=== PATIENT | male | born 1935 | race Hispanic/Latino ===

== ENCOUNTER → 2017-05-05 | Outpatient (CLI) | payer OTHER ==
[~2017-05-05] MED LIST: ACET1TAB12 PO; ACET500C44 PO; CLIN150C10 PO; DEXT15DR29 OP; DORZ10DR9 OU; RIVA20TA PO; TAMS0.4C32 PO; TIMO5DRO39 OU; XALA2.5OS OU
== END ==
LOC: SHCH 12:52
PROVIDERS: ATTEND Internal Medicine Cardiovascular Disease
DX: R00.1 Bradycardia, unspecified (principal); R00.2 Palpitations
CPT/HCPCS: 93306

== ENCOUNTER 2017-06-12 11:48 | Day surgery (SDC) | payer OTHER ==
[2017-06-09 09:52] LABS: BASOPHILS % (AUTO) 0.7 % (0.0-5.0); HEMATOCRIT 42.2 % (42-54); LYMPHOCYTES % (AUTO) 35.1 % (21.0-51.0); MEAN CORPUSCULAR HEMOGLOBIN 29.3 pg (27.0-33.0); MEAN CORPUSCULAR HGB CONC 33.8 g/dL (32.0-36.0); MEAN CORPUSCULAR VOLUME 86.7 fL (79-99); MONOCYTES % (AUTO) 12.1 % (3.0-13.0); NEUTROPHILS % (AUTO) 48.1 % (40.0-77.0); PLATELET COUNT (AUTO) 138 K/uL (130-400); RED BLOOD CELL COUNT(AUTO) 4.87 MIL/uL (4.50-6.20); RED CELL DISTRIBUTION WIDTH 14.4 % (11.0-15.5); WHITE BLOOD COUNT (AUTO) 5.1 K/uL (4.8-10.8)
[2017-06-09 09:54] VITALS: BP 128/56
[2017-06-09 10:03] LABS: INR 1.09 (0.85-1.15); PARTIAL THROMBOPLASTIN TIME 29.7 SEC (26.3-35.5); PROTHROMBIN TIME 11.4 SEC (9.6-11.6)
[2017-06-09 10:54] LABS: CREATININE 1.2 mg/dL (0.5-1.5); POTASSIUM 3.9 mmol/L (3.5-5.1)
[~2017-06-12] VITALS: Ht 180.3 cm; Wt 88.7 kg
[~2017-06-12 11:48] MED LIST changes: -CLIN150C10 PO; -TIMO5DRO39 OU
[2017-06-12 12:00] VITALS: BP 144/66
[2017-06-12] MEDS ORDERED: TIMO5DRO39 OU (13:20)
[2017-06-12] MEDS ORDERED: SODIUM CHLORIDE 0.9% 1000ML 1,000 ML IV ONE (13:23)
[2017-06-12] MEDS ORDERED: CEFAZOLIN 1GM / D5W 50ML 0 ML ONE (16:26)
[2017-06-12] MEDS ORDERED: BUPIVACAINE/PF 0.25% 30ML VIAL IJ ONE (16:26)
[2017-06-12] MEDS ORDERED: LIDOCAINE HCL 1% MDV 50ML VIAL ONE (16:26)
[2017-06-12] MEDS ORDERED: VANCOMYCIN 1GM+NS 250ML 0 ML IV ONE (16:44)
[2017-06-12] MEDS ORDERED: CLINDAMYCIN 600 MG/D5% WATER 100 ML IV ONE (16:51)
[2017-06-12] MEDS ORDERED: CLIN150C10 PO (17:35)
[2017-06-12 17:45] VITALS: BP 151/77
[2017-06-12] MEDS ORDERED: ACETAMINOPHEN 325 MG TAB PO PRN (17:45)
[2017-06-12 18:00] VITALS: BP 145/74
[2017-06-12 18:15] VITALS: BP 152/67
[2017-06-12 18:30] VITALS: BP 156/67
[2017-06-12 18:45] VITALS: BP 142/66
== END 2017-06-12 19:10 | disposition home or self-care (01) ==
LOC: DAH 11:48
PROVIDERS: ATTEND Internal Medicine Cardiovascular Disease
DX: I49.8 Other specified cardiac arrhythmias (principal); Z79.899 Other long term (current) drug therapy; H40.89 Other specified glaucoma; Z88.0 Allergy status to penicillin; Z79.01 Long term (current) use of anticoagulants
CPT/HCPCS: 33282; 36415; 80048; 85025; 85610; 85730; 93005; A4606; C1764; J3490 ×3; J7030; J0690; J3370

== ENCOUNTER 2018-04-21 08:25 | Day surgery (SDC) | payer OTHER ==
[~2018-04-21] VITALS: Ht 177.8 cm; Wt 90.4 kg
[2018-04-21] VITALS (7 sets, daily range): BP systolic 108–174; BP diastolic 53–86
[~2018-04-21 08:25] MED LIST changes: -ACET1TAB12 PO; -ACET500C44 PO; -DEXT15DR29 OP; -DORZ10DR9 OU; -RIVA20TA PO; +TIMO5DRO39 OU
[2018-04-21] MEDS ORDERED: SODIUM CHLORIDE 0.9% 1000ML 1,000 ML IV ONE (09:01)
[2018-04-21] MEDS ORDERED: CARB15DR2 OU (10:19)
[2018-04-21] MEDS ORDERED: PROPOFOL 10 MG/ML 20ML VIAL IV ONE ×2 (11:03)
--- NOTE | 2018-04-21 11:26 | NUR ---
ASSESSMENT RECEIVED PT FROM Murphy SPAULDING RN. PT ASLEEP. ABD X4 SOFT TO TOUCH. BS X4 PRESENT
== END 2018-04-21 12:05 | disposition home or self-care (01) ==
LOC: DAH 08:25 → ENDO 08:25
PROVIDERS: ATTEND Internal Medicine
DX: Z08 Encounter for follow-up examination after completed treatment for malignant neoplasm (principal); Z85.038 Personal history of other malignant neoplasm of large intestine; D12.2 Benign neoplasm of ascending colon; D12.3 Benign neoplasm of transverse colon; D12.4 Benign neoplasm of descending colon; Z98.49 Cataract extraction status, unspecified eye; Z79.899 Other long term (current) drug therapy; Z88.0 Allergy status to penicillin; I10 Essential (primary) hypertension; R00.1 Bradycardia, unspecified; K57.30 Diverticulosis of large intestine without perforation or abscess without bleeding; Z98.0 Intestinal bypass and anastomosis status
CPT/HCPCS: 45380; 45385; 88304; 88305; 93005; A4606; J2704 ×2; J7030

== ENCOUNTER 2020-12-04 05:52 | Day surgery (SDC) | payer OTHER ==
[2020-12-01 10:21] LABS: EOSINOPHILS % (AUTO) 2.1 % (0.0-8.0); HEMATOCRIT 43.1 % (42-54); LYMPHOCYTES % (AUTO) 36.3 % (21.0-51.0); MEAN CORPUSCULAR HEMOGLOBIN 29.7 pg (27.0-33.0); MEAN CORPUSCULAR HGB CONC 33.6 g/dL (32.0-36.0); MEAN CORPUSCULAR VOLUME 88.1 fL (79-99); MONOCYTES % (AUTO) 11.8 % (3.0-13.0); NEUTROPHILS % (AUTO) 48.4 % (40.0-77.0); PLATELET COUNT (AUTO) 141 K/uL (130-400); RED BLOOD CELL COUNT(AUTO) 4.89 MIL/uL (4.50-6.20); RED CELL DISTRIBUTION WIDTH 13.4 % (11.0-15.5); WHITE BLOOD COUNT (AUTO) 5.3 K/uL (4.8-10.8)
[2020-12-01 10:31] VITALS: BP 163/65
[2020-12-01 10:32] LABS: INR 1.1 (0.85-1.15); PROTHROMBIN TIME 11.9 SEC (9.6-11.6)
[2020-12-01 10:34] LABS: PARTIAL THROMBOPLASTIN TIME 28.2 SEC (26.3-35.5)
[2020-12-01 10:37] LABS: CREATININE 1.1 mg/dL (0.5-1.5); POTASSIUM 3.5 mmol/L (3.5-5.1)
[~2020-12-04] VITALS: Ht 172.7 cm; Wt 77.3 kg
[~2020-12-04 05:52] MED LIST changes: +AMLO-258 PO; +BRIM5DRO4 OP; +LATA7.5D OP; +RIVA20TA PO; -TAMS0.4C32 PO; -XALA2.5OS OU
[2020-12-04 06:24] VITALS: BP 162/70
[2020-12-04] MEDS ORDERED: LIDOCAINE HCL 1% MDV 50ML VIAL ONE (07:12)
[2020-12-04] MEDS ORDERED: BUPIVACAINE/PF 0.25% 30ML VIAL IJ ONE (07:12)
[2020-12-04] MEDS ORDERED: LIDOCAINE HCL 400MG/20ML VIAL ONE (07:12)
[2020-12-04] MEDS ORDERED: 0.9%NACL 1000ML 1,000 ML IV ONE (07:31)
[2020-12-04 08:05] VITALS: BP 166/64
[2020-12-04 08:20] VITALS: BP 149/58
[2020-12-04 08:35] VITALS: BP 140/56
== END 2020-12-04 09:00 | disposition home or self-care (01) ==
LOC: DAH 05:52
PROVIDERS: ATTEND Internal Medicine Cardiovascular Disease
DX: Z45.09 Encounter for adjustment and management of other cardiac device (principal); I48.91 Unspecified atrial fibrillation; Z79.01 Long term (current) use of anticoagulants; Z86.718 Personal history of other venous thrombosis and embolism; Z79.899 Other long term (current) drug therapy; Z98.890 Other specified postprocedural states; Z88.8 Allergy status to other drugs, medicaments and biological substances; Z90.49 Acquired absence of other specified parts of digestive tract
CPT/HCPCS: 33286; 36415; 80048; 85025; 85610; 85730; 93005; A4215; A4216; A4221; A4222; A4223 ×3; A4606; A4649; A4663; J3490 ×2; J7030

== ENCOUNTER → 2021-08-16 | Outpatient (CLI) | payer OTHER | END | disposition home or self-care (01) | LOC: RAH 10:27 | PROVIDERS: ATTEND Internal Medicine Gastroenterology | DX: R13.11 Dysphagia, oral phase (principal); R63.30 Feeding difficulties, unspecified | CPT/HCPCS: 74230; 92611 ==

== ENCOUNTER → 2021-12-18 | Outpatient (CLI) | payer OTHER | END | disposition home or self-care (01) | LOC: RAH 09:50 | PROVIDERS: ATTEND Family Medicine | DX: R13.10 Dysphagia, unspecified (principal); R63.30 Feeding difficulties, unspecified | CPT/HCPCS: 74230; 92611 ==

== ENCOUNTER 2022-10-09 18:16 | Inpatient (IN) | payer OTHER ==
[~2022-10-09] VITALS: Ht 182.9 cm; Wt 69.9 kg
[~2022-10-09 18:16] MED LIST changes: -BRIM5DRO4 OP; +BRIM5DRO5 OP
[2022-10-09 20:53] LABS: APPEARANCE,URINE CLEAR (CLEAR); BILIRUBIN,URINE NEGATIVE (NEGATIVE); COLOR,URINE YELLOW (YELLOW); GLUCOSE, URINE (UA) NEGATIVE (NEGATIVE); KETONES,URINE NEGATIVE (NEGATIVE); LEUKOCYTE ESTERASE ,URINE 75 Leu/uL (NEGATIVE); NITRATE,URINE NEGATIVE (NEGATIVE); OCCULT BLOOD,URINE MODERATE (NEGATIVE); PH,URINE 5.5 (5.0-8.0); PROTEIN,URINE 10 mg/dL (NEGATIVE); UROBILINOGEN,URINE 0.2 mg/dL (0.2-1.0)
[2022-10-09 21:19] LABS: BACTERIA,URINE RARE /HPF (None Seen); MUCUS,URINE FEW LPF (None Seen); RBC,URINE 26-50 /HPF (0-1); SQUAMOUS EPITHELIAL CELL,UR RARE /HPF (0-2)
[2022-10-09 21:40] LABS: BASOPHILS % (AUTO) 0.3 % (0.0-5.0); EOSINOPHILS % (AUTO) 0.4 % (0.0-8.0); HEMATOCRIT 37.1 % (42-54); LYMPHOCYTES % (AUTO) 18.6 % (21.0-51.0); MEAN CORPUSCULAR HGB CONC 34.2 g/dL (32.0-36.0); MEAN CORPUSCULAR VOLUME 84.7 fL (79-99); MONOCYTES % (AUTO) 12.5 % (3.0-13.0); NEUTROPHILS % (AUTO) 67.9 % (40.0-77.0); PLATELET COUNT (AUTO) 118 K/uL (130-400); RED BLOOD CELL COUNT(AUTO) 4.38 MIL/uL (4.50-6.20); RED CELL DISTRIBUTION WIDTH 13.2 % (11.0-15.5); WHITE BLOOD COUNT (AUTO) 6.7 K/uL (4.8-10.8)
[2022-10-09 21:58] LABS: ALBUMIN 2.9 g/dL (3.5-5.0); TOTAL PROTEIN, SERUM 6.6 g/dL (6.0-8.3)
[2022-10-09 22:01] LABS: CREATININE 12.2 mg/dL (0.5-1.5)
[2022-10-09] MEDS ORDERED: NOREPINEPHRIN 4MG/NS 250ML 250 ML IV PRN (22:30)
[2022-10-09] MEDS ORDERED: CEFTRIAXONE 1G VIAL IVPB ONE (22:30)
[2022-10-09] MEDS ORDERED: PANTOPRAZOLE 40MG INJ 80 MG in 0.9%NACL 100ML 100 ML IV SCH (22:30)
[2022-10-09] MEDS ORDERED: LACTULOSE 20 GM/30 ML UDCUP PO PRN (23:00)
[2022-10-09] MEDS ORDERED: POTASSIUM CHLORIDE 10% ELIXIR 20 MEQ/15 ML UDCUP PO PRN (23:00)
[2022-10-09] MEDS ORDERED: CLONIDINE HCL 0.1 MG TABLET PO PRN (23:00)
[2022-10-09] MEDS ORDERED: POTASSIUM CHLORIDE 10MEQ/100ML 100 ML IV PRN ×2 (23:00)
[2022-10-09] MEDS ORDERED: RENAL DOSE IV PRN (23:00)
[2022-10-09] MEDS ORDERED: HYDRALAZINE 20MG/ML VIAL IV PRN (23:00)
[2022-10-09] MEDS ORDERED: ONDANSETRON 4MG INJ IVP PRN (23:00)
[2022-10-09] MEDS ORDERED: ACETAMINOPHEN 650 MG SUPPOSITORY RC PRN (23:00)
[2022-10-09] MEDS ORDERED: DEXTROSE 50%-WATER 50 ML DISP.SYRIN IV PRN (23:00)
[2022-10-09] MEDS ORDERED: GLUCAGON 1MG KIT 1 MG ML IM PRN (23:00)
[2022-10-09] MEDS ORDERED: ACETAMINOPHEN 325 MG TAB PO PRN (23:00)
[2022-10-09] MEDS: 0.9%NACL 1000ML 1,000 ML IV SCH (23:19)
[2022-10-10 06:32] LABS: BASOPHILS % (AUTO) 0.4 % (0.0-5.0); HEMATOCRIT 34.5 % (42-54); LYMPHOCYTES % (AUTO) 18.9 % (21.0-51.0); MEAN CORPUSCULAR HEMOGLOBIN 29.3 pg (27.0-33.0); MEAN CORPUSCULAR HGB CONC 35.4 g/dL (32.0-36.0); MEAN CORPUSCULAR VOLUME 82.9 fL (79-99); MONOCYTES % (AUTO) 14.6 % (3.0-13.0); NEUTROPHILS % (AUTO) 64.5 % (40.0-77.0); PLATELET COUNT (AUTO) 137 K/uL (130-400); RED BLOOD CELL COUNT(AUTO) 4.16 MIL/uL (4.50-6.20); RED CELL DISTRIBUTION WIDTH 13.2 % (11.0-15.5); WHITE BLOOD COUNT (AUTO) 6.8 K/uL (4.8-10.8)
[2022-10-10 06:35] LABS: CREATININE 7.2 mg/dL (0.5-1.5); MAGNESIUM 1.8 mg/dL (1.80-2.40); POTASSIUM 4.3 mmol/L (3.5-5.1)
[2022-10-10] MEDS: 0.9%NACL 1000ML 1,000 ML IV SCH ×3 (06:57→23:00)
[2022-10-10] MEDS: INSULIN HUMULIN R 100 UNIT/ML 3ML SQ SCH ×4 (07:30→20:48)
[2022-10-10 08:30] VITALS: O2SAT 97
[2022-10-10 08:40] VITALS: BP 155/65; PULSE 82; RESP 20
[2022-10-10] MEDS ORDERED: FINA5TAB41 PO (08:51)
[2022-10-10] MEDS: TIMOLOL MALEATE 0.25% 5 ML BOTTLE OU SCH ×2 (09:00→20:41)
[2022-10-10] MEDS: ENOXAPARIN SODIUM 30 MG/0.3 ML SQ SCH (09:00)
[2022-10-10] MEDS ORDERED: NON-FORMULARY MEDICATION 1 EACH (Amlodipine Besylate 10 MG) PO SCH (09:00)
[2022-10-10] MEDS ORDERED: TIMOLOL MALEATE OU SCH (09:00)
[2022-10-10] MEDS: BRIMONIDINE TARTRATE 0.2% 5 ML BOTTLE OP SCH ×2 (09:00→20:37)
[2022-10-10] MEDS: POLYETHYLENE GLYCOL 3350 17 GM POWD.PACK PO SCH (09:00)
[2022-10-10 12:00] VITALS: BP 153/65; PULSE 86; RESP 19
[2022-10-10] MEDS: PANTOPRAZOLE 40 MG TAB DR PO SCH (12:32)
[2022-10-10] MEDS: AMLODIPINE 5 MG TAB PO SCH (12:32)
[2022-10-10] MEDS: MAGNESIUM 2GM PREMIX 50ML 50 ML IV PRN (12:37)
[2022-10-10 16:00] VITALS: BP 149/69; PULSE 91; RESP 20
[2022-10-10 20:00] VITALS: O2SAT 97
[2022-10-10 20:15] VITALS: BP 147/65; PULSE 88; RESP 18
[2022-10-10] MEDS ORDERED: LATANOPROST 2.5 ML DROPS OU SCH (21:00)
[2022-10-10] MEDS ORDERED: LATANOPROST OP SCH (21:00)
[2022-10-10] MEDS ORDERED: CEFTRIAXONE 1G VIAL IVPB SCH (23:00)
[2022-10-11] VITALS: BP 151/60; PULSE 81; RESP 18
[2022-10-11] MEDS: 0.9%NACL 1000ML 1,000 ML IV SCH ×2 (02:38→15:00)
[2022-10-11 04:00] VITALS: BP 156/63; PULSE 77; RESP 18
[2022-10-11 05:55] LABS: BASOPHILS % (AUTO) 0.5 % (0.0-5.0); EOSINOPHILS % (AUTO) 1.2 % (0.0-8.0); HEMATOCRIT 36.2 % (42-54); LYMPHOCYTES % (AUTO) 27.4 % (21.0-51.0); MEAN CORPUSCULAR HEMOGLOBIN 28.8 pg (27.0-33.0); MEAN CORPUSCULAR HGB CONC 32.9 g/dL (32.0-36.0); MEAN CORPUSCULAR VOLUME 87.7 fL (79-99); MONOCYTES % (AUTO) 13.8 % (3.0-13.0); NEUTROPHILS % (AUTO) 56.9 % (40.0-77.0); PLATELET COUNT (AUTO) 127 K/uL (130-400); RED BLOOD CELL COUNT(AUTO) 4.13 MIL/uL (4.50-6.20); RED CELL DISTRIBUTION WIDTH 13.5 % (11.0-15.5); WHITE BLOOD COUNT (AUTO) 5.7 K/uL (4.8-10.8)
[2022-10-11] MEDS: INSULIN HUMULIN R 100 UNIT/ML 3ML SQ SCH ×3 (06:43→15:37)
[2022-10-11 07:03] LABS: CREATININE 1.5 mg/dL (0.5-1.5); POTASSIUM 3.5 mmol/L (3.5-5.1)
[2022-10-11] MEDS: BRIMONIDINE TARTRATE 0.2% 5 ML BOTTLE OP SCH (07:46)
[2022-10-11] MEDS: TIMOLOL MALEATE 0.25% 5 ML BOTTLE OU SCH (07:47)
[2022-10-11 08:00] VITALS: BP 144/65; PULSE 71; RESP 16; O2SAT 99
[2022-10-11] MEDS ORDERED: TAMS-1 PO (08:27)
[2022-10-11] MEDS ORDERED: LEVO750T39 PO (08:27)
[2022-10-11] MEDS: ENOXAPARIN SODIUM 30 MG/0.3 ML SQ SCH ×2 (08:34→08:41)
[2022-10-11] MEDS: PANTOPRAZOLE 40 MG TAB DR PO SCH (08:35)
[2022-10-11] MEDS: POLYETHYLENE GLYCOL 3350 17 GM POWD.PACK PO SCH (08:35)
[2022-10-11] MEDS: AMLODIPINE 5 MG TAB PO SCH (08:35)
[2022-10-11] MEDS: KCL 20 MEQ ERTAB PO PRN ×2 (08:35→14:01)
[2022-10-11] MEDS: MAGNESIUM 2GM PREMIX 50ML 50 ML IV PRN (08:36)
[2022-10-11] MEDS ORDERED: TAMSULOSIN HCL 0.4 MG CAP.ER.24H PO SCH (09:00)
[2022-10-11 11:58] VITALS: BP 146/65; PULSE 73; RESP 18
== END 2022-10-11 17:32 | disposition home or self-care (01) | DRG 683 ==
LOC: EDH 18:16 → EDHIP 22:52 → 3AH 10-10 08:40
PROVIDERS: ADMIT Internal Medicine Critical Care Medicine; ATTEND Internal Medicine Critical Care Medicine
DX: N17.9 Acute kidney failure, unspecified (principal); E44.0 Moderate protein-calorie malnutrition; E87.20 Acidosis, unspecified; N13.8 Other obstructive and reflux uropathy; N13.6 Pyonephrosis; N40.1 Benign prostatic hyperplasia with lower urinary tract symptoms; D64.9 Anemia, unspecified; D69.6 Thrombocytopenia, unspecified; I10 Essential (primary) hypertension; E11.9 Type 2 diabetes mellitus without complications; E78.5 Hyperlipidemia, unspecified; I25.2 Old myocardial infarction; Z85.038 Personal history of other malignant neoplasm of large intestine; Z86.73 Personal history of transient ischemic attack (TIA), and cerebral infarction without residual deficits; Z90.49 Acquired absence of other specified parts of digestive tract; Z68.20 Body mass index [BMI] 20.0-20.9, adult; N40.0 Benign prostatic hyperplasia without lower urinary tract symptoms
CPT/HCPCS: 36415; 71045; 74176; 76770; 80048; 80053; 81001; 82550; 82948; 83735; 84145; 85025; 87088; 93005; C9113; G0378; J0696; J1650; J3475; J7030

== ENCOUNTER 2023-06-17 20:48 | Emergency (ER) | payer OTHER ==
[~2023-06-17] VITALS: Ht 182.9 cm; Wt 71.7 kg
[~2023-06-17 20:48] MED LIST changes: +LEVO750T39 PO; +TAMS-1 PO
[2023-06-17 22:23] LABS: BASOPHILS # (AUTO) 0.03 K/uL (0.00-0.20); BASOPHILS % (AUTO) 0.3 % (0.0-5.0); HEMATOCRIT 41.1 % (42-54); IMMATURE GRANULOCYTE ABSOLUTE 0.03 K/uL (0-1); LYMPHOCYTES # (AUTO) 0.6 K/uL (1.0-4.8); LYMPHOCYTES % (AUTO) 6.3 % (21.0-51.0); MEAN CORPUSCULAR HEMOGLOBIN 29.2 pg (27.0-33.0); MEAN CORPUSCULAR HGB CONC 34.1 g/dL (32.0-36.0); MEAN CORPUSCULAR VOLUME 85.6 fL (79-99); MONOCYTES # (AUTO) 0.8 K/uL (0.1-1.0); MONOCYTES % (AUTO) 8.6 % (3.0-13.0); NEUTROPHILS # (AUTO) 7.8 K/uL (1.8-7.7); NEUTROPHILS % (AUTO) 84.5 % (40.0-77.0); PLATELET COUNT (AUTO) 120 K/uL (130-400); RED CELL DISTRIBUTION WIDTH 13.2 % (11.0-15.5); WHITE BLOOD COUNT (AUTO) 9.2 K/uL (4.8-10.8)
[2023-06-17 22:35] LABS: CREATININE 1.3 mg/dL (0.5-1.3)
[2023-06-17] MEDS: LEVOFLOXACIN 500 MG/D5W 100 ML 100 ML IV ONE (23:44)
[2023-06-18 00:52] LABS: ADD UA MICROSCOPIC YES; APPEARANCE,URINE CLOUDY (CLEAR); BILIRUBIN,URINE NEGATIVE (NEGATIVE); COLOR,URINE DARK-BROWN (YELLOW); GLUCOSE, URINE (UA) NEGATIVE (NEGATIVE); KETONES,URINE NEGATIVE (NEGATIVE); LEUKOCYTE ESTERASE ,URINE NEGATIVE Leu/uL (NEGATIVE); NITRATE,URINE NEGATIVE (NEGATIVE); OCCULT BLOOD,URINE LARGE (NEGATIVE); PROTEIN,URINE 100 mg/dL (NEGATIVE); UROBILINOGEN,URINE 0.2 mg/dL (0.2-1.0)
[2023-06-18 00:54] LABS: BACTERIA,URINE RARE /HPF (None Seen); MUCUS,URINE RARE LPF (None Seen); RBC,URINE TNTC /HPF (0-1)
[2023-06-18 01:05] VITALS: BP 150/58; PULSE 66; RESP 18; O2SAT 100
== END 2023-06-18 01:36 | disposition home or self-care (01) ==
LOC: EDH 20:48
DX: S37.30XA Unspecified injury of urethra, initial encounter (principal); I10 Essential (primary) hypertension; Z85.038 Personal history of other malignant neoplasm of large intestine; Z90.49 Acquired absence of other specified parts of digestive tract; Z88.0 Allergy status to penicillin; Z98.890 Other specified postprocedural states; Z79.899 Other long term (current) drug therapy; X58.XXXA Exposure to other specified factors, initial encounter; Y93.89 Activity, other specified; Y92.89 Other specified places as the place of occurrence of the external cause; Y99.8 Other external cause status
CPT/HCPCS: 99284; 96365; 80048; 85025; 81001; 36415; 51702; J1956; 51701

== ENCOUNTER 2024-08-11 14:51 | Emergency (ER) | payer OTHER ==
[~2024-08-11] VITALS: Ht 170.2 cm; Wt 72.6 kg
[~2024-08-11 14:51] MED LIST changes: -LEVO750T39 PO; +LEVO750T90 PO; -TAMS-1 PO; +TAMS-55 PO
--- NOTE | 2024-08-11 15:24 | ERN ---
General Chief Complaint: Urinary Catheter Problems Stated Complaint: BLEEDING FROM BROWNE Time Seen by MD: 14:54 History of Present Illness Initial Comments The year old male who presents for hematuria in the Browne. Patient has had a Browne for over two years. He reports that yesterday he began with some blood. This morning there were clots coming out of the Browne. Home health nurse checked on the patient and told him to come to the ER for further evaluation. Currently there is bloody urine without clots in the Browne bag. The patient has no complaints. He does not take any blood thinners. Allergies: Coded Allergies: Penicillins (Unverified Allergy, Unknown, 07/31/16) Home Meds Active Scripts Sulfamethoxazole/Trimethoprim (Bactrim Ds Tablet) 800 Mg-160 Mg Tablet, 1 TAB PO BID for 6 Days, #13 TAB 0 Refills Prov:RATNA ZACARIAS MD 08/11/24 Levofloxacin (Levofloxacin) 750 Mg Tablet, 750 MG PO DAILY, #5 TAB 0 Refills Prov:[facility] 10/11/22 Tamsulosin HCl (Flomax) 0.4 Mg Cap.er.24h, 0.4 MG PO DAILY, #30 CAPSULE.DR 0 Refills Prov:[facility] 10/11/22 Reported Medications Rivaroxaban (Xarelto) 20 Mg Tablet, 20 MG PO DAILY, TAB 12/01/20 Brimonidine Tartrate (Brimonidine Tartrate) 5 Ml Drops, 1 ML OP BID, DROP 12/01/20 Latanoprost/Pf (Latanoprost 0.005% Eye Drop) 7.5 Ml Drops, 1 ML OP HS, DROP 12/01/20 Amlodipine Besylate (Amlodipine Besylate) 10 Mg Tablet, 10 MG PO DAILY for 30 Days, #30 TAB 0 Refills 12/01/20 Timolol Maleate (Timolol Maleate) 5 Ml Drop.daily, 1 DROP OU BID 06/12/17 Past Medical History Past Medical History: Hypertension, Other Medical History Other: ENLARGED PROSTATE; SEASONAL ALLERGIES; BLIND Past Surgical History: Appendectomy, Other Surgical History Other: HX OF COLON CA; COLON RESECTION; Social History Social History: Negative, Lives with family ROS Dictation CONSTITUTIONAL: No chills, no fever, no weakness, no diaphoresis, no malaise. HEAD/FACE: No signs of trauma. EENT: No eye pain, no blurred vision, no tearing, no double vision, no ear pain, no ear discharge, no nose pain, no nasal congestion, no throat pain, no throat swelling, no mouth pain. RESPIRATORY: No cough, no orthopnea, no SOB, no stridor, no wheezing. CARDIOVASCULAR: No chest pain, no edema, no palpitations, no syncope. GASTROINTESTINAL/ABDOMINAL: No abdominal pain, no constipation, no diarrhea, no nausea, no vomiting. GENITOURINARY: Hematuria MUSCULOSKELETAL: No back pain, no gout, no joint pain, no joint swelling, no muscle pain, no muscle stiffness, no neck pain. INTEGUMENTARY: No change in color, no change in hair/nails, no dryness, no lesion, no lumps, no rash. NEUROLOGICAL/PSYCH: No anxiety, not depressed, no emotional problem, no headache, no numbness, no pre-existing deficit, no history of seizures, no tremors, no weakness. HEMATOLOGIC/LYMPHATIC: Not anemic, no history of blood clots, no apparent bleeding, no bruising, glands not swollen. All Systems Negative, Except as Noted. Physical Exam Physical Exam Dictation VITAL SIGNS: Reviewed. GENERAL APPEARANCE: Alert, oriented x3, no acute distress, HEAD AND FACE: Non-traumatic. EYES: PERRL, pink conjunctivas, eyelid no trauma, anterior chamber clear. B brandan EARS: Pinnas intact and no signs of trauma or erythema. Ear canals clear and no discharge. TMs no erythema. NOSE: No discharge, no bleeding. OROPHARYNX: Mouth normal, teeth no caries, tongue pink. Pharynx clear, no erythema. Tonsils no exudates, no abscesses noted. Mucous membrane moist. NECK: Supple, non-tender, no thyromegaly, no masses, no JVD, no bruits. BREAST: Deferred. CHEST: No tenderness, no crepitus, no paradoxical movement, no retractions. LUNGS: Clear, well-ventilated, symmetric, no rales, no wheezing, no rhonchi, no stridor, good breath sounds bilaterally. HEART: Regular rate, regular rhythm, no murmur, no gallops. VASCULAR: No peripheral edema. ABDOMEN: Soft, positive bowel sounds, nondistended, no guarding, nontender, no rebound, no masses no hepatomegaly, no splenomegaly, no Camarillo's sign, no hernias. RECTAL: Deferred. GENITAL: Browne, hematuria NEUROLOGICAL: Normal speech, gross motor function intact, gross sensory function intact. MUSCULOSKELETAL: Neck nontender, full range of motion, back nontender, full range of motion. EXTREMITIES: Nontender, full range of motion. SKIN: Color pink, dry, no turgor, no rash, no lacerations, no abrasions, no contusions. LYMPHATICS: Deferred. Results Laboratory and Microbiology Lab and Micro Result Laboratory Tests Test 08/11/24 16:00 08/11/24 17:30 White Blood Count 10.3 K/uL (4.8-10.8) Red Blood Count 4.64 MIL/uL (4.50-6.20) Hemoglobin 13.6 g/dL (14.0-18.0) L Hematocrit 39.9 % (42-54) L Mean Corpuscular Volume 86.0 fL (79-99) Mean Corpuscular Hemoglobin 29.3 pg (27.0-33.0) Mean Corpuscular Hemoglobin Concent 34.1 g/dL (32.0-36.0) Red Cell Distribution Width 13.8 % (11.0-15.5) Platelet Count 125 K/uL (130-400) L Mean Platelet Volume 9.8 fL (7.5-10.5) Immature Granulocyte % (Auto) 0.4 % (0-1) Neutrophils (%) (Auto) 69.7 % (40.0-77.0) Lymphocytes (%) (Auto) 13.3 % (21.0-51.0) L Monocytes (%) (Auto) 16.1 % (3.0-13.0) H Eosinophils (%) (Auto) 0.2 % (0.0-8.0) Basophils (%) (Auto) 0.3 % (0.0-5.0) Neutrophils # (Auto) 7.2 K/uL (1.8-7.7) Lymphocytes # (Auto) 1.4 K/uL (1.0-4.8) Monocytes # (Auto) 1.7 K/uL (0.1-1.0) H Eosinophils # (Auto) 0.02 K/uL (0.00-0.70) Basophils # (Auto) 0.03 K/uL (0.00-0.20) Absolute Immature Granulocyte (auto 0.04 K/uL (0-1) Nucleated Red Blood Cells 0.0 % (0.0-0.19) White Cell Morphology Comment See comments Prothrombin Time 11.7 SEC (9.6-11.6) H Prothromb Time International Ratio 1.12 (0.85-1.15) Activated Partial Thromboplast Time 31.3 SEC (26.3-35.5) Sodium Level 139 mmol/L (136-145) Potassium Level 3.7 mmol/L (3.5-5.1) Chloride Level 105 mmol/L (101-111) Carbon Dioxide Level 24 mmol/L (21-32) Blood Urea Nitrogen 23 mg/dL (7-18) H Creatinine 1.2 mg/dL (0.5-1.3) Glomerular Filtration Rate Calc 58 mL/min (>90) Random Glucose 126 mg/dL (70-105) H Total Calcium 8.1 mg/dL (8.5-10.1) L Urine Color COLORLESS (YELLOW) Urine Appearance CLEAR (CLEAR) Urine pH 6.0 (5.0-8.0) Urine Specific [place] 1.006 (1.001-1.031) Urine Protein 50 mg/dL (NEGATIVE) H Urine Glucose (UA) NEGATIVE mg/dL (NEGATIVE) Urine Ketones NEGATIVE mg/dL (NEGATIVE) Urine Occult Blood LARGE (NEGATIVE) H Urine Nitrate NEGATIVE (NEGATIVE) Urine Bilirubin NEGATIVE mg/dL (NEGATIVE) Urine Urobilinogen 0.2 mg/dL (0.2-1.0) Urine Leukocyte Esterase 250 Mike/uL (NEGATIVE) H Urine RBC TNTC /HPF (0-1) H Urine WBC 11-25 /HPF (0-1) H Urine Bacteria RARE /HPF (None Seen) MDM The year old male who presents for hematuria in the Browne. Patient has had a Browne for over two years. He reports that yesterday he began with some blood. This morning there were clots coming out of the Browne. Home health nurse checked on the patient and told him to come to the ER for further evaluation. Currently there is bloody urine without clots in the Browne bag. The patient has no complaints. He does not take any blood thinners. Patient was started on 3 way bladder lavage with a good improvement of hematuria. UA positive for UTI, Bactrim 1st dose given(patient has history of penicillin endoscopy specialty technician) Patient denies taking any anticoagulation or aspirin at home. Patient was re-evaluate the bedside at 9:15 p.m., urine is clear. Patient he will be discharged home with Browne in place. ED Course Orders Procedure Category Date Status Time Cbc With Differential LAB 08/11/24 Complete 15:20 Basic Metabolic Panel LAB 08/11/24 Complete 15:20 Prothrombin Time With LAB 08/11/24 Complete INR 15:20 Partial LAB 08/11/24 Complete Thromboplastin Time 15:20 Urinalysis Profile LAB 08/11/24 Complete 15:20 Culture Urine WILTON 08/11/24 Complete 18:15 Sulfamethox-Tmp Ds PHA 08/11/24 Complete 800/160 Tab (Bactrim 20:00 Current Medications Medications (Trade) Dose Ordered Sig/Ari Route PRN Reason Start Time Stop Time Status Last Admin Dose Admin Trimethoprim/ Sulfamethoxazole (BactRIM DS) 1 tab ONCE ONCE PO 08/11/24 20:00 08/11/24 20:01 DC 08/11/24 19:49 Vital Signs Date Time Temp Pulse Resp B/P (MAP) Pulse Ox O2 Delivery O2 Flow Rate FiO2 08/11/24 20:43 98.4 62 17 154/54 98 Room Air* 0 08/11/24 18:16 99.1 75 18 165/69 98 Room Air* 0 08/11/24 17:22 99.0 76 18 161/63 98 Room Air* 0 08/11/24 15:13 99.7 84 18 145/60 98 Room Air* 0 08/11/24 14:55 98.2 95 14 155/65 98 Room Air 0 DX & DISP Disposition: Discharge Departure Impression: Primary Impression: Hematuria Additional Impressions: UTI (urinary tract infection), H/O urinary retention Condition: Improved Scripts Sulfamethoxazole/Trimethoprim (Bactrim Ds Tablet) 800 Mg-160 Mg Tablet 1 TAB PO BID for 6 Days, #13 TAB 0 Refills Prov: RATNA ZACARIAS MD 08/11/24 Additional Instructions: RETURN TO ER FOR ANY ACUTE OR WORSENING SYMPTOMS. FOLLOW-UP IN 1-2 DAYS WITH PRIMARY PROVIDER FOR RECHECK OF TODAY'S SYMPTOMS. Referrals: QUYNH MONAE MD (PCP) BABAR IRBY DO August 11, 2024 15:24 RATNA ZACARIAS MD August 11, 2024 21:12
[2024-08-11 16:12] LABS: BASOPHILS # (AUTO) 0.03 K/uL (0.00-0.20); BASOPHILS % (AUTO) 0.3 % (0.0-5.0); EOSINOPHILS # (AUTO) 0.02 K/uL (0.00-0.70); EOSINOPHILS % (AUTO) 0.2 % (0.0-8.0); HEMATOCRIT 39.9 % (42-54); IMMATURE GRANULOCYTE ABSOLUTE 0.04 K/uL (0-1); LYMPHOCYTES # (AUTO) 1.4 K/uL (1.0-4.8); LYMPHOCYTES % (AUTO) 13.3 % (21.0-51.0); MEAN CORPUSCULAR HEMOGLOBIN 29.3 pg (27.0-33.0); MEAN CORPUSCULAR HGB CONC 34.1 g/dL (32.0-36.0); MONOCYTES # (AUTO) 1.7 K/uL (0.1-1.0); MONOCYTES % (AUTO) 16.1 % (3.0-13.0); NEUTROPHILS # (AUTO) 7.2 K/uL (1.8-7.7); NEUTROPHILS % (AUTO) 69.7 % (40.0-77.0); PLATELET COUNT (AUTO) 125 K/uL (130-400); RED BLOOD CELL COUNT(AUTO) 4.64 MIL/uL (4.50-6.20); RED CELL DISTRIBUTION WIDTH 13.8 % (11.0-15.5); WHITE BLOOD COUNT (AUTO) 10.3 K/uL (4.8-10.8)
[2024-08-11 16:16] LABS: CREATININE 1.2 mg/dL (0.5-1.3); POTASSIUM 3.7 mmol/L (3.5-5.1)
[2024-08-11 16:19] LABS: INR 1.12 (0.85-1.15); PROTHROMBIN TIME 11.7 SEC (9.6-11.6)
[2024-08-11 16:20] LABS: PARTIAL THROMBOPLASTIN TIME 31.3 SEC (26.3-35.5)
[2024-08-11 18:06] LABS: APPEARANCE,URINE CLEAR (CLEAR); BILIRUBIN,URINE NEGATIVE (NEGATIVE); COLOR,URINE COLORLESS (YELLOW); GLUCOSE, URINE (UA) NEGATIVE (NEGATIVE); KETONES,URINE NEGATIVE (NEGATIVE); LEUKOCYTE ESTERASE ,URINE 250 Leu/uL (NEGATIVE); NITRATE,URINE NEGATIVE (NEGATIVE); OCCULT BLOOD,URINE LARGE (NEGATIVE); PROTEIN,URINE 50 mg/dL (NEGATIVE); UROBILINOGEN,URINE 0.2 mg/dL (0.2-1.0)
[2024-08-11 18:14] LABS: ADD UA MICROSCOPIC YES
[2024-08-11 18:17] LABS: BACTERIA,URINE RARE /HPF (None Seen); MUCUS,URINE RARE LPF (None Seen); RBC,URINE TNTC /HPF (0-1)
[2024-08-11] MEDS: sulfaMETHOX-TMP DS 800/160 TAB PO ONE (19:49)
[2024-08-11 20:43] VITALS: BP 154/54; PULSE 62; RESP 17; TEMP 98.4; O2SAT 98
[2024-08-11] MEDS ORDERED: SULF1TAB42 PO (21:15)
== END 2024-08-11 21:57 | disposition home or self-care (01) ==
LOC: EDH 14:51
DX: N39.0 Urinary tract infection, site not specified (principal); R31.9 Hematuria, unspecified; I10 Essential (primary) hypertension; Z79.01 Long term (current) use of anticoagulants; Z85.038 Personal history of other malignant neoplasm of large intestine; Z88.0 Allergy status to penicillin; Z90.49 Acquired absence of other specified parts of digestive tract
CPT/HCPCS: 36415; 80048; 81001; 85025; 85610; 85730; 87086; 87186; 99285

== ENCOUNTER 2024-08-30 17:59 | Inpatient (IN) | payer OTHER ==
[~2024-08-30] VITALS: Ht 170.2 cm; Wt 73.9 kg
[~2024-08-30 17:59] MED LIST changes: +SULF1TAB42 PO
--- NOTE | 2024-08-30 18:10 | ERN ---
ED Note History of Present Illness Stated Complaint: CATHETER HEMORAGING;BLEEDING Chief Complaint: Urinary Catheter Problems Time Seen by MD: 18:01 Dictation: PATIENT IS AN 88-YEAR-OLD MALE HERE WITH HIS WITH COMPLAINTS OF NO URINE OUTPUT EXCEPT FOR BLOOD-TINGED URINE ONSET THIS MORNING AFTER HIS BROWNE CATHETER WAS CHANGED. STATES HE HAS HAD CHRONIC BROWNE CATHETER FOR TWO YEARS AND IT HAS CHANGED MONTHLY BY THE HOME HEALTH NURSE. SHE SAID THE BROWNE CATHETER WAS DRAINING THIS MORNING PERFECTLY THEN THE HOME HEALTH NURSE CAME OUT IT WAS CHANGE AND THERE WAS NO URINE OUTPUT EXCEPT FOR BLOOD. SHE SAID THAT THE HOME HEALTH NURSE GOT ANXIOUS AND SAID FOR HER TO GO TO THE EMERGENCY ROOM FOR FURTHER EVALUATION AND TREATMENT. PATIENT HAS A BROWNE BAG IN PLACE AND THERE WAS NO URINE OUTPUT NOTED Allergies: Coded Allergies: Penicillins (Unverified Allergy, Unknown, 07/31/16) Home Meds Active Scripts Sulfamethoxazole/Trimethoprim (Bactrim Ds Tablet) 800 Mg-160 Mg Tablet, 1 TAB PO BID for 6 Days, #13 TAB 0 Refills Prov:RATNA ZACARIAS MD 08/11/24 Levofloxacin (Levofloxacin) 750 Mg Tablet, 750 MG PO DAILY, #5 TAB 0 Refills Prov:[facility] 10/11/22 Tamsulosin HCl (Flomax) 0.4 Mg Cap.er.24h, 0.4 MG PO DAILY, #30 CAPSULE.DR 0 Refills Prov:[facility] 10/11/22 Reported Medications Rivaroxaban (Xarelto) 20 Mg Tablet, 20 MG PO DAILY, TAB 12/01/20 Brimonidine Tartrate (Brimonidine Tartrate) 5 Ml Drops, 1 ML OP BID, DROP 12/01/20 Latanoprost/Pf (Latanoprost 0.005% Eye Drop) 7.5 Ml Drops, 1 ML OP HS, DROP 12/01/20 Amlodipine Besylate (Amlodipine Besylate) 10 Mg Tablet, 10 MG PO DAILY for 30 Days, #30 TAB 0 Refills 12/01/20 Timolol Maleate (Timolol Maleate) 5 Ml Drop.daily, 1 DROP OU BID 06/12/17 Past Medical History Past Medical History: Hypertension, Other Additional Past Medical Hx: ENLARGED PROSTATE; SEASONAL ALLERGIES; BLIND Surgical History: Appendectomy, Other Surgical History Other: HX OF COLON CA; COLON RESECTION; Social History: Negative, Lives with family RN Note Reviewed/Agreed w/PFSH: Yes Review of System Dictation CONSTITUTIONAL: NEGATIVE EXCEPT FOR HPI HEAD/FACE: NEGATIVE EXCEPT FOR HPI EENT: NEGATIVE EXCEPT FOR HPI RESPIRATORY: NEGATIVE EXCEPT FOR HPI GASTROINTESTINAL/ABDOMINAL: NEGATIVE EXCEPT FOR HPI GENITOURINARY: NEGATIVE EXCEPT FOR HPI NON FUNCTIONING BROWNE CATHETER MUSCULOSKELETAL: NEGATIVE EXCEPT FOR HPI INTEGUMENTARY: NEGATIVE EXCEPT FOR HPI NEUROLOGICAL/PSYCH: NEGATIVE EXCEPT FOR HPI HEMATOLOGIC/LYMPHATIC: NEGATIVE EXCEPT FOR HPI ALL SYSTEMS NEGATIVE, EXCEPT NOTED ABOVE. 13 POINT REVIEW OF SYSTEMS ASSESSED AND ALL NEGATIVE EXCEPT FOR ABOVE. Initial Vital Sign VS Vital Signs Date Time Temp Pulse Resp B/P (MAP) Pulse Ox O2 Delivery O2 Flow Rate FiO2 08/30/24 18:03 98.2 92 16 189/76 97 Room Air 0 08/30/24 19:51 21 Physical Exam Dictation VITAL SIGNS REVIEWED GENERAL APPEARANCE: ALERT, ORIENTED X 3, NO ACUTE DISTRESS, WELL DEVELOPED, NOURISHED. HEAD AND FACE: NON-TRAUMATIC. EYES:, PINK CONJUNCTIVAS, EYELID NO TRAUMA, ANTERIOR CHAMBER WITH ARCUS SENILIS. BLIND EARS: PINNAS INTACT AND NO SIGNS OF TRAUMA OR ERYTHEMA EAR CANALS CLEAR AND NO DISCHARGE TM NO ERYTHEMA NOSE: NO DISCHARGE, NO BLEEDING. OROPHARYNX: MOUTH NORMAL, TONGUE PINK, PHARYNX CLEAR,NO ERYTHEMA, TONSILS NO EXUDATES, NO ABSCESSES NOTED, MUCOUS MEMBRANE MOIST NECK: SUPPLE, NON-TENDER, NO THYROMEGALY, NO MASSES, NO JVD, NO BRUITS BREAST:DEFERRED CHEST:NO TENDERNESS, NO CREPITUS, NO PARADOXICAL MOVEMENT, NO RETRACTIONS LUNGS:CLEAR, WELL-VENTILATED, SYMMETRIC, NO RALES, NO WHEEZING, NO RHONCHI, NO STRIDOR, GOOD BREATH SOUNDS BILATERALLY HEART: REGULAR RATE, REGULAR RHYTHM, NO MURMUR, NO GALLOPS VASCULAR: NO PERIPHERAL EDEMA, ABDOMEN: SOFT, POSITIVE BOWEL SOUNDS, NONDISTENDED, NO GUARDING, NONTENDER, NO REBOUND, NO MASSES NO HEPATOMEGALY, NO SPLENOMEGALY, NO [place]'S SIGN, NO HERNIAS. RECTAL: DEFERRED GENITAL: DEFERRED BROWNE CATHETER IN PLACE TO BAG, NO URINE NOTED IN DRAIN BAG. PATIENT NOTED TO BE THREE FINGERBREADTHS DISTENDED ABOVE SYMPHYSIS PUBIS NEUROLOGICAL: NORMAL SPEECH, MOTOR FUNCTION INTACT, SENSORY FUNCTION INTACT MUSCULOSKELETAL: NECK NONTENDER, FULL RANGE OF MOTION, BACK NONTENDER, FULL RANGE OF MOTION, EXTREMITIES: NONTENDER, FULL RANGE OF MOTION SKIN: COLOR PINK, DRY, NO TURGOR, NO RASH, NO LACERATIONS, NO ABRASIONS, NO CONTUSIONS. LYMPHATIC: DEFERRED Results (Laboratory/Radiology) Laboratory/Radiology Laboratory Tests Test 08/30/24 19:53 08/30/24 19:57 White Blood Count 4.4 K/uL (4.8-10.8) L Red Blood Count 4.11 MIL/uL (4.50-6.20) L Hemoglobin 12.0 g/dL (14.0-18.0) L Hematocrit 35.1 % (42-54) L Mean Corpuscular Volume 85.4 fL (79-99) Mean Corpuscular Hemoglobin 29.2 pg (27.0-33.0) Mean Corpuscular Hemoglobin Concent 34.2 g/dL (32.0-36.0) Red Cell Distribution Width 13.5 % (11.0-15.5) Platelet Count 138 K/uL (130-400) Mean Platelet Volume 10.0 fL (7.5-10.5) Immature Granulocyte % (Auto) 0.2 % (0-1) Neutrophils (%) (Auto) 67.6 % (40.0-77.0) Lymphocytes (%) (Auto) 19.7 % (21.0-51.0) L Monocytes (%) (Auto) 10.9 % (3.0-13.0) Eosinophils (%) (Auto) 1.1 % (0.0-8.0) Basophils (%) (Auto) 0.5 % (0.0-5.0) Neutrophils # (Auto) 3.0 K/uL (1.8-7.7) Lymphocytes # (Auto) 0.9 K/uL (1.0-4.8) L Monocytes # (Auto) 0.5 K/uL (0.1-1.0) Eosinophils # (Auto) 0.05 K/uL (0.00-0.70) Basophils # (Auto) 0.02 K/uL (0.00-0.20) Absolute Immature Granulocyte (auto 0.01 K/uL (0-1) Nucleated Red Blood Cells 0.0 % (0.0-0.19) Sodium Level 138 mmol/L (136-145) Potassium Level 3.9 mmol/L (3.5-5.1) Chloride Level 105 mmol/L (101-111) Carbon Dioxide Level 27 mmol/L (21-32) Blood Urea Nitrogen 28 mg/dL (7-18) H Creatinine 1.2 mg/dL (0.5-1.3) Glomerular Filtration Rate Calc 58 mL/min (>90) Random Glucose 123 mg/dL (70-105) H Total Calcium 8.0 mg/dL (8.5-10.1) L Urine Color RED (YELLOW) Urine Appearance CLOUDY (CLEAR) H Urine pH 6.5 (5.0-8.0) Urine Specific [place] 1.008 (1.001-1.031) Urine Protein 100 mg/dL (NEGATIVE) H Urine Glucose (UA) NEGATIVE mg/dL (NEGATIVE) Urine Ketones NEGATIVE mg/dL (NEGATIVE) Urine Occult Blood LARGE (NEGATIVE) H Urine Nitrate NEGATIVE (NEGATIVE) Urine Bilirubin NEGATIVE mg/dL (NEGATIVE) Urine Urobilinogen 0.2 mg/dL (0.2-1.0) Urine Leukocyte Esterase 75 Mike/uL (NEGATIVE) H Urine RBC TNTC /HPF (0-1) H Urine WBC 2-5 /HPF (0-1) H Urine Other Crystals (Auto) 14 /HPF (None Seen) Urine Bacteria None /HPF (None Seen) Labs Reviewed?: Yes ED Course ED Course Orders Procedure Category Date Status Time *Nursing CPOE 08/30/24 Transmitted Communication: 18:07 Cbc With Differential LAB 08/30/24 Complete 19:42 Urinalysis Profile LAB 08/30/24 Complete 19:42 0.9%Nacl 1000ml (Ns PHA 08/30/24 In Process 1000ml) 20:00 Basic Metabolic Panel LAB 08/30/24 Complete 19:42 Culture Urine WILTON 08/30/24 In Process 20:11 Levofloxacin 500 PHA 08/30/24 In Process Mg/D5w 100 Ml 20:21 Current Medications Medications (Trade) Dose Ordered Sig/Ari Route PRN Reason Start Time Stop Time Status Last Admin Dose Admin Levofloxacin/ Dextrose 100 ml @ 100 mls/hr ONCE IV 08/30/24 20:21 08/30/24 23:59 Sodium Chloride 1,000 ml @ 0 mls/hr ONCE IV 08/30/24 20:00 08/30/24 23:59 Vital Signs Date Time Temp Pulse Resp B/P (MAP) Pulse Ox O2 Delivery O2 Flow Rate FiO2 08/30/24 19:51 66 18 148/51 99 Room Air* 0 21 08/30/24 18:03 98.2 92 16 189/76 97 Room Air 0 2039/SPOKE WITH PATIENT AND AT LENGTH THEY ARE AWARE THAT I WE WILL BE ADMITTING HOSPITAL. HAS HAD ACUTE TRAUMATIC INSERTION OF THE BROWNE MOST LIKELY INFLATED IN THE URETHRA ADDITIONALLY HIS LAST VISIT THE EMERGENCY ROOM WAS ON 08/11 IN HIS HEMOGLOBIN WAS 13.6, TODAY IT IS 12. PATIENT CONTINUES TO DRAIN LARGE AMOUNT OF THAT IS NOT CORRECT HEMATURIA URINE. BLADDER IS NOT PALPABLE 2049/SPOKE WITH MAKAYLA VITALE HOSPITALIST AND REVIEWED LABS INTERVENTIONS FOR TRAUMATIC INSERTION AND BLOOD LOSS TO INCLUDE FLUIDS AND ANTIBIOTICS. SHE AGREED TO ADMIT PATIENT. Medical Decision Making MDM MDM: DIFFERENTIAL DIAGNOSIS: TRAUMATIC BROWNE CATHETER INSERTION, URETHRAL INFLATION. ANEMIA/INFECTION/UTI RATIONALE: TESTS CONSIDERED AND ORDERED SECONDARY TO SHARED DECISION MAKING INCLUDE: LABS, AND RADIOLOGY PREVIOUS OUTSIDE RECORDS REVIEWED: OLD ER VISITS. RISK OF COMPLICATION AND/OR MORBIDITY OR MORTALITY OF PATIENT MANAGEMENT: MILD MEDICATIONS-PER MEDICATION RECONCILIATION NEED FOR HOSPITALIZATION: PATIENT DOES MEET CRITERIA FOR HOSPITALIZATION. WE WILL ADMIT PATIENT TO THE HOSPITAL FOR FLUIDS AND IV ANTIBIOTICS FOR TRAUMATIC BROWNE INSERTION. NEED FOR EMERGENCY MAJOR/MINOR SURGERY: NO THERE ARE NO SOCIAL CONCERNS WITH THIS PATIENT. PRESCRIPTION DRUG MANAGEMENT PRESCRIPTIONS WILL INCLUDE SYMPTOMATIC CARE PATIENT'S PRIOR EXTERNAL MEDICAL RECORDS FROM OTHER ER VISITS WERE REVIEWED BY ME INDICATED. PRIOR TESTING AND RESULTS FROM PREVIOUS VISITS WERE REVIEWED. PRIOR TESTS WERE TAKEN INTO ACCOUNT WITH MEDICAL DECISION MAKING AND RESOURCE UTILIZATION, INDEPENDENT HISTORIAN/HISTORIANS WERE USED TO OBTAIN COMPLETE MEDICAL HISTORY. I INDEPENDENTLY INTERPRETED THE TEST THAT WERE PERFORMED, RESULTS WERE REVIEWED BY ME AND CONSIDERED FINDINGS ON RADIOLOGY IF ORDERED. MEDICAL MANAGEMENT AND EXAMINATION INTERPRETATION DISCUSSIONS WERE HAD BY ME WITH OTHER QUALIFIED HEALTHCARE PROFESSIONALS INDICATED FOR THE PATIENT'S CARE. Procedure Procedure Dictation: 1929/PATIENT TAKEN TO TRIAGE TWO AND EXPLAINED PROCEDURE TO HIM IN HIS FAMILY. PATIENT HAS BROWNE CATHETER IN PLACE, NO URINE IN BAG. BROWNE CATHETER BALLOON WAS DEFLATED AND HAD IMMEDIATE BLEEDING FROM THE URETHRA URETHRAL WAS PREPPED ASEPTICALLY 16 ARMENIAN BROWNE CATHETER PLACED BY SOLUTION LEAD OBTAINED APPROXIMATELY 600 CC OF BLOODY URINE WITH SOME CLOTS NOTED. BLADDER NO LONGER PALPABLE FAMILY AT BEDSIDE WERE MADE AWARE OF PROBABLE URETHRAL INFLATION OF THE BROWNE CATHETER BALLOON DX & DISP Disposition: Inpatient Decision to Admit Time: 20:41 Departure Impression: Primary Impression: Bleeding from urethra in male Additional Impressions: Complication of Browne catheter, Anemia, Hyperglycemia, Stage 3 chronic kidney disease, Hypocalcemia, BPH with urinary obstruction Condition: Stable Referrals: QUYNH MONAE MD (PCP) Time of Disposition: 20:41 I have reviewed the case, and I agree with, Diagnosis and Plan NATHEN [facility] RE[employer]IG[employer]ATING OILER Aug 30, 2024 18:10
--- NOTE | 2024-08-30 20:00 | NUR ---
PATIENT STATES NO PAIN, AT BEDSIDE.
[2024-08-30 20:03] LABS: BASOPHILS # (AUTO) 0.02 K/uL (0.00-0.20); BASOPHILS % (AUTO) 0.5 % (0.0-5.0); EOSINOPHILS # (AUTO) 0.05 K/uL (0.00-0.70); EOSINOPHILS % (AUTO) 1.1 % (0.0-8.0); HEMATOCRIT 35.1 % (42-54); IMMATURE GRANULOCYTE ABSOLUTE 0.01 K/uL (0-1); LYMPHOCYTES # (AUTO) 0.9 K/uL (1.0-4.8); LYMPHOCYTES % (AUTO) 19.7 % (21.0-51.0); MEAN CORPUSCULAR HEMOGLOBIN 29.2 pg (27.0-33.0); MEAN CORPUSCULAR HGB CONC 34.2 g/dL (32.0-36.0); MEAN CORPUSCULAR VOLUME 85.4 fL (79-99); MONOCYTES # (AUTO) 0.5 K/uL (0.1-1.0); MONOCYTES % (AUTO) 10.9 % (3.0-13.0); NEUTROPHILS % (AUTO) 67.6 % (40.0-77.0); PLATELET COUNT (AUTO) 138 K/uL (130-400); RED BLOOD CELL COUNT(AUTO) 4.11 MIL/uL (4.50-6.20); RED CELL DISTRIBUTION WIDTH 13.5 % (11.0-15.5); WHITE BLOOD COUNT (AUTO) 4.4 K/uL (4.8-10.8)
[2024-08-30 20:08] LABS: CREATININE 1.2 mg/dL (0.5-1.3); POTASSIUM 3.9 mmol/L (3.5-5.1)
[2024-08-30 20:10] LABS: APPEARANCE,URINE CLOUDY (CLEAR); BILIRUBIN,URINE NEGATIVE (NEGATIVE); COLOR,URINE RED (YELLOW); GLUCOSE, URINE (UA) NEGATIVE (NEGATIVE); KETONES,URINE NEGATIVE (NEGATIVE); LEUKOCYTE ESTERASE ,URINE 75 Leu/uL (NEGATIVE); NITRATE,URINE NEGATIVE (NEGATIVE); OCCULT BLOOD,URINE LARGE (NEGATIVE); PH,URINE 6.5 (5.0-8.0); PROTEIN,URINE 100 mg/dL (NEGATIVE); UROBILINOGEN,URINE 0.2 mg/dL (0.2-1.0)
[2024-08-30 20:11] LABS: ADD UA MICROSCOPIC YES
[2024-08-30 20:14] LABS: MUCUS,URINE RARE LPF (None Seen); RBC,URINE TNTC /HPF (0-1); UNCLASSIFIED CRYSTAL 14 /HPF (None Seen)
[2024-08-30] MEDS ORDERED: LAbetaLOL 20MG SYG IV PRN (21:30)
[2024-08-30] MEDS ORDERED: doCUSate SODIUM 100 MG CAP PO PRN (21:30)
[2024-08-30] MEDS ORDERED: acetaMINOPHEN 650 MG SUPPOSITORY RC PRN (21:30)
[2024-08-30] MEDS ORDERED: ondanSETRON 4MG INJ IVP PRN (21:30)
[2024-08-30] MEDS ORDERED: LACTULOSE 20 GM/30 ML UDCUP PO PRN (21:30)
[2024-08-30] MEDS ORDERED: TEMAZepam 15 MG CAPSULE PO PRN (21:30)
[2024-08-30] MEDS ORDERED: acetaMINOPHEN 325 MG TAB PO PRN (21:30)
[2024-08-30] MEDS: 0.9%NACL 1000ML 1,000 ML IV SCH (22:23)
[2024-08-30] MEDS: levoFLOXacin 500 MG/D5W 100 ML 100 ML IV SCH (22:24)
--- NOTE | 2024-08-30 23:25 | HP ---
[facility] HISTORY & PHYSICAL Date Patient Seen: Aug 30, 2024 Time of Visit: 23:25 Supervising Physician: Dr. Petit Primary Care Physician: QUYNH MONAE MD Outpatient Specialists: Dr. Abdullahi, urology (no longer in practice) Inpatient Consults: Dr. Power, urologist PROBLEM LIST: Chronic Bahena catheter complications, POA Bleeding from the urethra, POA, s/p Bahena catheter insertion by home health nurse Hematuria, POA Acute complicated cystitis, POA Anemia CKD stage III BPH with the urinary obstruction Hyperglycemia Hypertension Legally blind History of colon cancer and colon resection HPI: Mr. Nash is a 88-year-old male with a history of HTN, BPH, seasonal allergies, legally blind, colon cancer, colon resection who presented to [facility] ED for evaluation of no urine output except for blood-tinged urine onset this morning after the Bahena catheter was changed. at bedside stated that he has a chronic Bahena catheter for two years and it has been changed monthly by home health nurse. She stated that the Bahena catheter was draining in the morning perfectly then the home health nurse changed it and there was no urine output except for blood. She stated that the home health nurse got anxious and said to her to go to the emergency room for further evaluation and treatment. ED provider reports patient has had acute traumatic insertion of the Bahena most likely inflated in the urethra and ED providers concerned that on 08/11 the hemoglobin was 13.6 and today it is 12. The catheter was inserted by ED and drain large amount of urine with small to moderate amount blood. ED provider request patient be admitted with the diagnosis of bleeding from the ureter, complicated Bahena catheter, anemia, hyperglycemia, stage III CKD, hypocalcemia, BPH with urinary obstruction. I assessed the patient at bedside in ED 11. was at bedside. The patient appeared comfortable. Breathing was even, unlabored, in no distress. I informed the patient and at bedside of labs, diagnostics, and plan of care. They verbalized understanding and are in agreement with the plan. Plan and assessment are listed below. PAST MEDICAL HX: see above PAST SURGICAL HX: Appendectomy Colon resection SOCIAL HISTORY: No tobacco, ETOH, or illicit drug use Coded Allergies: Penicillins (Unverified Allergy, Unknown, 07/31/16) REVIEW OF SYSTEMS: 12 point ROS reviewed with patient. Pertinent positives mentioned above. Otherwi se negative. PHYSICAL EXAM: GENERAL: Alert, weak, awake oriented x 3 HEENT: EOMI, Sclera non icteric, moist mucosa. Legally blind NECK: Supple, no JVD, trachea midline LUNGS: Clear breath sounds bilaterally. No wheezes HEART: Regular rate and rhythm. Normal S1 and S2, without murmurs ABD: Abdomen soft, nontender. Bowel sounds present EXT: No clubbing cyanosis or edema NEURO: Alert and oriented X3, follows commands Vital Signs (last 8hr) Date Time Temp Pulse Resp B/P (MAP) Pulse Ox O2 Delivery O2 Flow Rate FiO2 08/30/24 22:24 62 18 153/53 99 Room Air* 0 21 08/30/24 19:51 66 18 148/51 99 Room Air* 0 21 08/30/24 18:03 98.2 92 16 189/76 97 Room Air 0 LABS: Hematology Labs: Test 08/30/24 19:53 Range/Units White Blood Count 4.4 L 4.8-10.8 K/uL Red Blood Count 4.11 L 4.50-6.20 MIL/uL Hemoglobin 12.0 L 14.0-18.0 g/dL Hematocrit 35.1 L 42-54 % Mean Corpuscular Volume 85.4 79-99 fL Mean Corpuscular Hemoglobin 29.2 27.0-33.0 pg Mean Corpuscular Hemoglobin Concent 34.2 32.0-36.0 g/dL Red Cell Distribution Width 13.5 11.0-15.5 % Platelet Count 138 130-400 K/uL Mean Platelet Volume 10.0 7.5-10.5 fL Immature Granulocyte % (Auto) 0.2 0-1 % Neutrophils (%) (Auto) 67.6 40.0-77.0 % Lymphocytes (%) (Auto) 19.7 L 21.0-51.0 % Monocytes (%) (Auto) 10.9 3.0-13.0 % Eosinophils (%) (Auto) 1.1 0.0-8.0 % Basophils (%) (Auto) 0.5 0.0-5.0 % Neutrophils # (Auto) 3.0 1.8-7.7 K/uL Lymphocytes # (Auto) 0.9 L 1.0-4.8 K/uL Monocytes # (Auto) 0.5 0.1-1.0 K/uL Eosinophils # (Auto) 0.05 0.00-0.70 K/uL Basophils # (Auto) 0.02 0.00-0.20 K/uL Absolute Immature Granulocyte (auto 0.01 0-1 K/uL Nucleated Red Blood Cells 0.0 0.0-0.19 % Chemistry Labs: Test 08/30/24 19:53 Range/Units Sodium Level 138 136-145 mmol/L Potassium Level 3.9 3.5-5.1 mmol/L Chloride Level 105 101-111 mmol/L Carbon Dioxide Level 27 21-32 mmol/L Blood Urea Nitrogen 28 H 7-18 mg/dL Creatinine 1.2 0.5-1.3 mg/dL Glomerular Filtration Rate Calc 58 >90 mL/min Random Glucose 123 H 70-105 mg/dL Total Calcium 8.0 L 8.5-10.1 mg/dL DIAGNOSTICS / RADIOLOGY RESULTS: [ ] PLAN Admit to medical floor with fall precautions. Continue Levaquin 500 mg IV daily. Follow urine cultures. Consult urologist in a.m.. Bahena catheter care per nursing. Monitor renal and liver function. Monitor electrolytes and treat accordingly. Start metoprolol succinate, Flomax, Amlodipine per external med rec. Reconcile home medications once available. DVT and GI prophylaxis: Protonix and SCDs. NEURO: Minimize central acting medications as possible. Maintain fall precautions, adequate lighting during the day PULMONARY: Supplemental 02 as needed. Maintain aspiration precautions at all times CARDIOVASCULAR: Follow hemodynamics. Vital signs per facility protocol GI & NUTRITION: Continue with nutritional support. Continue stool softeners and laxatives as needed. KIDNEYS & ELECTROLYTES: Strict monitoring of intake, output and overall fluid balance. Avoid nephrotoxic medications to the extent possible. Medications to be dosed according to renal function. Monitor electrolytes and replace as needed ENDOCRINE: Maintain blood glucose between 100-180 at all times. Hypoglycemia protocol in place INFECTIOUS DISEASE: Trend temperature, WBC and procalcitonin level Follow cultures, deescalate antibiotics as soon as possible. Panculture if new onset fever ONCOLOGY/HEMATOLOGY/COAGULATION: Monitor for s/s of bleeding Monitor hemoglobin, coagulation studies as needed SKIN: Pressure ulcer prevention per facility protocol Specialty mattress ORTHO/REHAB: Continue PT/OT Prophylaxis: Continue GI and DVT prophylaxis Code Status: Full Resuscitation Disposition: TBD ATTESTATION BY PHYSICIAN I attest that I reviewed and discussed the case with the Physician Board Operator as well as agree with the Physician Board Operator's findings, plans of care, and documentation above. Andrew Cespedes MD, [facility] Aug 30, 2024 23:25
--- NOTE | 2024-08-31 04:21 | NUR ---
URINE COLOR IMPROVING, DARK PINK IN COLOR, CLEAR.
[2024-08-31 05:47] LABS: HEMATOCRIT 35.8 % (42-54); MEAN CORPUSCULAR HEMOGLOBIN 29.2 pg (27.0-33.0); MEAN CORPUSCULAR HGB CONC 33.2 g/dL (32.0-36.0); RED BLOOD CELL COUNT(AUTO) 4.07 MIL/uL (4.50-6.20); RED CELL DISTRIBUTION WIDTH 13.6 % (11.0-15.5); WHITE BLOOD COUNT (AUTO) 4.4 K/uL (4.8-10.8)
[2024-08-31 06:19] LABS: PHOSPHORUS 2.7 mg/dL (2.5-4.9); POTASSIUM 4.1 mmol/L (3.5-5.1); THYROID STIMULATING HORMONE 2.31 uIU/mL (0.36-3.74)
--- NOTE | 2024-08-31 06:21 | NUR ---
URINE COLOR CONTINUES TO IMPROVE, PINK IN COLOR, PATIENT SLEEPING, NO DISTRESS NOTED, AT BEDSIDE.
[2024-08-31] MEDS: INSULIN humuLIN R 100 UNIT/ML 3ML SQ SCH (07:30)
[2024-08-31] MEDS ORDERED: levoFLOXacin 500 MG/D5W 100 ML 100 ML IV SCH (09:00)
--- NOTE | 2024-08-31 09:10 | NUR ---
DCP: HOME with [facility] met with pt's Neli Hall [phone] or [phone] and their daughter Millicent Nash [phone]. Pt is legally blind and hard of hearing. Using a cane to ambulate, is independent of all his ADLS. Was discharged from [facility] yesterday, because they were planning to leave on [facility] to [place] Friday. Family not sure if hey will be able to make trip. Family to re contact PCP Goyo Gonzalez at discharge to re admit pt to for [facility] 1x a week. signed consent for [facility], consent on chart. Family use [facility] for rx needs. denies need for SNF, states she will take pt home at md Addendum: 08/31/24 at 0912 by JASE CINTRON Amended: Links added.
[2024-08-31] MEDS: amLODIPine 5 MG TAB PO SCH (09:15)
[2024-08-31] MEDS: metOPROLol sucCINATE 50 MG TAB.SR.24H PO SCH (09:15)
[2024-08-31] MEDS: LISINOPRIL 20 MG TABLET PO SCH (09:15)
[2024-08-31] MEDS: PANTOPrazole 40 MG TAB DR PO SCH (09:15)
[2024-08-31] MEDS: tamSULOsin HCL 0.4 MG CAP.ER.24H PO SCH (09:16)
[2024-08-31] MEDS: levoFLOXacin 250 MG/D5W 50ML 50 ML IVPB SCH (09:33)
--- NOTE | 2024-08-31 14:52 | PN ---
[facility] PROGRESS NOTE Date Patient Seen: Aug 31, 2024 Time of Visit: 14:52 Supervising Physician: Dr. Andrew Petit Primary Care Physician: QUYNH MONAE MD Outpatient Specialists: Dr. Abdullahi, urology (no longer in practice) Inpatient Consults: Dr. Power, urologist PROBLEM LIST: Chronic Bahena catheter complications, POA Bleeding from the urethra, POA, s/p Bahena catheter insertion by home health nurse Hematuria, POA Acute complicated cystitis, POA Anemia CKD stage III BPH with the urinary obstruction Hyperglycemia Hypertension Legally blind History of colon cancer and colon resection INTERVAL HISTORY: Patient evaluated at bedside today, is at bedside in the. Patient continues with hematuria, appears to be strawberry limited today. Urology consulted currently pending evaluation. Recommendations to nursing staff to irrigate intermittently to release clots. Patient is pending urine culture at this time, positive for cystitis on UA. at bedside states that patient has been in out of the hospital with several urinary tract infections, currently on Levaquin. Pending coagulation studies in the morning to verify there is no coa gulopathy underlying hematuria. Pending updates from Urology. REVIEW OF SYSTEMS: 12 point ROS reviewed with patient. Pertinent positives mentioned above. Otherwise negative. PHYSICAL EXAM: GENERAL: Alert, weak, awake oriented x 3 HEENT: EOMI, Sclera non icteric, moist mucosa. Legally blind NECK: Supple, no JVD, trachea midline LUNGS: Clear breath sounds bilaterally. No wheezes HEART: Regular rate and rhythm. Normal S1 and S2, without murmurs ABD: Abdomen soft, nontender. Bowel sounds present EXT: No clubbing cyanosis or edema NEURO: Alert and oriented X3, follows commands Vital Signs (last 8hr) Date Time Temp Pulse Resp B/P (MAP) Pulse Ox O2 Delivery O2 Flow Rate FiO2 08/31/24 12:05 97.9 48 15 138/49 100 Room Air* 0 21 08/31/24 07:17 97.9 86 16 142/50 100 Room Air* 0 21 LABS: Hematology Labs: Test 08/31/24 05:39 08/30/24 19:53 Range/Units White Blood Count 4.4 L 4.8-10.8 K/uL Red Blood Count 4.07 L 4.50-6.20 MIL/uL Hemoglobin 11.9 L 14.0-18.0 g/dL Hematocrit 35.8 L 42-54 % Mean Corpuscular Volume 88.0 79-99 fL Mean Corpuscular Hemoglobin 29.2 27.0-33.0 pg Mean Corpuscular Hemoglobin Concent 33.2 32.0-36.0 g/dL Red Cell Distribution Width 13.6 11.0-15.5 % Platelet Count 124 L 130-400 K/uL Mean Platelet Volume 10.5 7.5-10.5 fL Nucleated Red Blood Cells 0.0 0.0-0.19 % Immature Granulocyte % (Auto) 0.2 0-1 % Neutrophils (%) (Auto) 67.6 40.0-77.0 % Lymphocytes (%) (Auto) 19.7 L 21.0-51.0 % Monocytes (%) (Auto) 10.9 3.0-13.0 % Eosinophils (%) (Auto) 1.1 0.0-8.0 % Basophils (%) (Auto) 0.5 0.0-5.0 % Neutrophils # (Auto) 3.0 1.8-7.7 K/uL Lymphocytes # (Auto) 0.9 L 1.0-4.8 K/uL Monocytes # (Auto) 0.5 0.1-1.0 K/uL Eosinophils # (Auto) 0.05 0.00-0.70 K/uL Basophils # (Auto) 0.02 0.00-0.20 K/uL Absolute Immature Granulocyte (auto 0.01 0-1 K/uL Chemistry Labs: Test 08/31/24 11:42 08/31/24 05:39 Range/Units Whole Blood Glucose 113 H 70-110 MG/DL Sodium Level 141 136-145 mmol/L Potassium Level 4.1 3.5-5.1 mmol/L Chloride Level 110 101-111 mmol/L Carbon Dioxide Level 24 21-32 mmol/L Blood Urea Nitrogen 21 H 7-18 mg/dL Creatinine 1.0 0.5-1.3 mg/dL Glomerular Filtration Rate Calc 72 >90 mL/min Random Glucose 81 70-105 mg/dL Total Calcium 8.1 L 8.5-10.1 mg/dL Phosphorus Level 2.7 2.5-4.9 mg/dL Magnesium Level 2.00 1.80-2.40 mg/dL Thyroid Stimulating Hormone (TSH) 2.31 0.36-3.74 uIU/mL DIAGNOSTICS / RADIOLOGY RESULTS: [ ] PLAN Admit to medical floor with fall precautions. Continue Levaquin 500 mg IV daily. Follow urine cultures. Consult urologist in a.m.. Bahena catheter care per nursing. Monitor renal and liver function. Monitor electrolytes and treat accordingly. Start metoprolol succinate, Flomax, Amlodipine per external med rec. Reconcile home medications once available. DVT and GI prophylaxis: Protonix and SCDs. NEURO: Minimize central acting medications as possible. Maintain fall precautions, adequate lighting during the day PULMONARY: Supplemental 02 as needed. Maintain aspiration precautions at all times CARDIOVASCULAR: Follow hemodynamics. Vital signs per facility protocol GI & NUTRITION: Continue with nutritional support. Continue stool softeners and laxatives as needed. KIDNEYS & ELECTROLYTES: Strict monitoring of intake, output and overall fluid balance. Avoid nephrotoxic medications to the extent possible. Medications to be dosed according to renal function. Monitor electrolytes and replace as needed ENDOCRINE: Maintain blood glucose between 100-180 at all times. Hypoglycemia protocol in place INFECTIOUS DISEASE: Trend temperature, WBC and procalcitonin level Follow cultures, deescalate antibiotics as soon as possible. Panculture if new onset fever ONCOLOGY/HEMATOLOGY/COAGULATION: Monitor for s/s of bleeding Monitor hemoglobin, coagulation studies as needed SKIN: Pressure ulcer prevention per facility protocol Specialty mattress ORTHO/REHAB: Continue PT/OT Prophylaxis: Continue GI and DVT prophylaxis Code Status: Full Resuscitation Disposition: MIGUELITO STEWART Aug 31, 2024 14:52
[2024-08-31] MEDS ORDERED: AMLODIPINE BENAZEPRIL PO SCH (17:00)
--- NOTE | 2024-08-31 20:45 | NUR ---
REPORT GIVEN TO NURSE CADENA, ALL QUESTIONS ANSWERED AT THIS TIME. NURSE EXPECTING PT ARRIVAL TO THE UNIT.
[2024-08-31 21:00] VITALS: BP 152/69; PULSE 60; RESP 16; TEMP 97.6
[2024-08-31] MEDS ORDERED: TAMS-55 PO (21:58)
[2024-08-31] MEDS ORDERED: DESL5TAB45 PO (21:58)
[2024-08-31] MEDS ORDERED: METO-391 PO (21:58)
[2024-08-31] MEDS ORDERED: LATA2.5D14 OU (21:58)
[2024-08-31] MEDS ORDERED: AZEL137S11 EN (21:58)
[2024-08-31] MEDS ORDERED: MIRT7.5T11 PO (21:58)
[2024-08-31] MEDS ORDERED: BRIM5DRO5 OD (21:58)
--- NOTE | 2024-08-31 22:09 | CONS ---
CONSULTATION NOTE Date of Service: Aug 31, 2024 Reason for Consultation: Traumatic Bahena catheter bleed Requesting Physician: Brandon Nash MD HISTORY OF PRESENT ILLNESS: 88-year-old male with a history of HTN, BPH, seasonal allergies, legally blind, colon cancer, colon resection who presented to [facility] ED for evaluation of no urine output except for blood-tinged urine onset this morning after the Bahena catheter was changed. at bedside stated that he has a chronic Bahena catheter for two years and it has been changed monthly by home health nurse. She stated that the Bahena catheter was draining in the morning perfectly then the home health nurse changed it and there was no urine output except for blood. She stated that the home health nurse got anxious and said to her to go to the emergency room for further evaluation and treatment. ED provider reports patient has had acute traumatic insertion of the Bahena most likely inflated in the urethra and ED providers concerned that on 08/11 the hemoglobin was 13.6 and today it is 12. The catheter was inserted by ED and drain large amount of urine with small to moderate amount blood. ED provider request patient be admitted with the diagnosis of bleeding from the ureter, complicated Bahena catheter, anemia, hyperglycemia, stage III CKD, hypocalcemia, BPH with urinary obstruction. Patient has been relegated to an indwelling Bahena catheter for the last two years by his former urologist Dr. Bryant raymond. The explains that some studies were done and showed that his bladder was not working so they left him with a Bahena catheter in place. He has a Bahena catheter exchange every month by nursing staff. One of such a catheter exchanges just happened and this led to some dramatic bleeding. REVIEW OF SYSTEMS CONSTITUTIONAL: Denies fever, chills, or fatigue. HEAD/FACE: No signs of trauma. EENT: Denies eye pain, blurred vision, double vision, or light sensitivity. RESPIRATORY: Denies shortness of breath, cough, wheezing CARDIOVASCULAR: Denies chest pain, palpitation, syncope GASTROINTESTINAL/ABDOMINAL: Denies abdominal pain, constipation, diarrhea, nausea or vomiting GENITOURINARY: Denies dysuria, endorses hematuria in the Bahena catheter MUSCULOSKELETAL: Denies joint pain, tenderness, or trauma. INTEGUMENTARY: Denies rash or itchiness NEUROLOGICAL/PSYCH: Denies anxiety, depression, heat or cold intolerance. PAST MEDICAL HISTORY: HTN, BPH, seasonal allergies, legally blind, colon cancer, PAST SURGICAL HISTORY: colon resection PAST SOCIAL HISTORY: Patient denies ethanol, drugs or smoking FAMILY HISTORY: Noncontributory to presenting complaint Coded Allergies: Penicillins (Unverified Allergy, Unknown, 07/31/16) PHYSICAL EXAM EYES: Anicteric. Pupils equal and reactive. HENT: No oral thrush seen, moist Oral mucosa NECK: Supple, no JVD or thyromegaly. LUNGS: Good air entry. No rales, no rhonchi. CARDIOVASCULAR: S1, S2 regular. No murmur heard. ABDOMEN: Soft, non tender, bowel sounds present, no organomegaly CENTRAL NERVOUS SYSTEM: Awake, alert, oriented x 3. No focal deficits. SKIN: No rashes, no swelling. LYMPHATICS: No peripheral lymphadenopathy MUSCULOSKELETAL: No joint swelling, erythema or tenderness. EXTREMITIES: No cyanosis or clubbing BACK: No deformity, no pressure ulcer. GENITOURINARY: Bahena catheter is in place draining Pawan-Aid tinged urine. On exam he is circumcised. His meatus has become patulous from erosion from the Bahena catheter. Vital Sign (Last 24 Hours) 08/31/24 08/31/24 20:47 21:00 Temp 97.5 Pulse 60 Resp 16 B/P (MAP) 152/69 Pulse Ox 98 O2 Delivery Room Air O2 Flow Rate 0 FiO2 21 Intake & Output (last 24hrs) 08/30/24 08/30/24 08/31/24 15:00 23:00 07:00 Output Total 700 ml 1200 ml Balance -700 ml -1200 ml LABS: Laboratory: Test 08/31/24 17:02 08/31/24 05:39 08/30/24 19:57 08/30/24 19:53 Range/Units Whole Blood Glucose 88 70-110 MG/DL White Blood Count 4.4 L 4.8-10.8 K/uL Red Blood Count 4.07 L 4.50-6.20 MIL/uL Hemoglobin 11.9 L 14.0-18.0 g/dL Hematocrit 35.8 L 42-54 % Mean Corpuscular Volume 88.0 79-99 fL Mean Corpuscular Hemoglobin 29.2 27.0-33.0 pg Mean Corpuscular Hemoglobin Concent 33.2 32.0-36.0 g/dL Red Cell Distribution Width 13.6 11.0-15.5 % Platelet Count 124 L 130-400 K/uL Mean Platelet Volume 10.5 7.5-10.5 fL Nucleated Red Blood Cells 0.0 0.0-0.19 % Sodium Level 141 136-145 mmol/L Potassium Level 4.1 3.5-5.1 mmol/L Chloride Level 110 101-111 mmol/L Carbon Dioxide Level 24 21-32 mmol/L Blood Urea Nitrogen 21 H 7-18 mg/dL Creatinine 1.0 0.5-1.3 mg/dL Glomerular Filtration Rate Calc 72 >90 mL/min Random Glucose 81 70-105 mg/dL Total Calcium 8.1 L 8.5-10.1 mg/dL Phosphorus Level 2.7 2.5-4.9 mg/dL Magnesium Level 2.00 1.80-2.40 mg/dL Thyroid Stimulating Hormone (TSH) 2.31 0.36-3.74 uIU/mL Urine Color RED YELLOW Urine Appearance CLOUDY H CLEAR Urine pH 6.5 5.0-8.0 Urine Specific [place] 1.008 1.001-1.031 Urine Protein 100 H NEGATIVE mg/dL Urine Glucose (UA) NEGATIVE NEGATIVE mg/dL Urine Ketones NEGATIVE NEGATIVE mg/dL Urine Occult Blood LARGE H NEGATIVE Urine Nitrate NEGATIVE NEGATIVE Urine Bilirubin NEGATIVE NEGATIVE mg/dL Urine Urobilinogen 0.2 0.2-1.0 mg/dL Urine Leukocyte Esterase 75 H NEGATIVE Mike/uL Urine RBC TNTC H 0-1 /HPF Urine WBC 2-5 H 0-1 /HPF Urine Other Crystals (Auto) 14 None Seen /HPF Urine Bacteria None None Seen /HPF Immature Granulocyte % (Auto) 0.2 0-1 % Neutrophils (%) (Auto) 67.6 40.0-77.0 % Lymphocytes (%) (Auto) 19.7 L 21.0-51.0 % Monocytes (%) (Auto) 10.9 3.0-13.0 % Eosinophils (%) (Auto) 1.1 0.0-8.0 % Basophils (%) (Auto) 0.5 0.0-5.0 % Neutrophils # (Auto) 3.0 1.8-7.7 K/uL Lymphocytes # (Auto) 0.9 L 1.0-4.8 K/uL Monocytes # (Auto) 0.5 0.1-1.0 K/uL Eosinophils # (Auto) 0.05 0.00-0.70 K/uL Basophils # (Auto) 0.02 0.00-0.20 K/uL Absolute Immature Granulocyte (auto 0.01 0-1 K/uL DIAGNOSTICS / RADIOLOGY: No imaging to review ASSESSMENT: 88-year-old man with a history of colon cancer status post colonic resection has an indwelling Bahena catheter for the past two years presents to the hospital with traumatic Bahena bleeding following catheter exchange PLAN: 1. It is not unusual to have some kind of gross hematuria Bahena in the catheter exchange for swollen was had an indwelling Bahena catheter in place for some time. This development of bullous edema in the bladder which can be traumatized from time to time lead to bleeding 2. I would like to get some lower tract imaging for this patient to assess his prostate in relation to the bladder. Even though he is at risk for neuromuscular bladder dysfunction given colonic resection, patient might be a candidate for an intervention to get him catheter free even if he does not empty his bladder. 3. Once we obtain these studies we will then make an update the recommendation to patient and spouse. 4. In meantime continue with the Bahena catheter drainage to gravity. 60 minutes spent to complete a consult, more than half of the time spent in counseling and coordination of care and addressing all questions and concerns post by patient, some time was spent discussing with members of his care team, the rest of the time was spent reviewing medical records. VISHAL TRUJILLO MD Aug 31, 2024 22:09
[2024-09-01] VITALS (7 sets, daily range): BP systolic 114–148; BP diastolic 41–61; PULSE 46–61; RESP 16–18; TEMP 97.4–98.3; O2SAT 99
[2024-09-01 04:52] LABS: INR 1.14 (0.85-1.15); PROTHROMBIN TIME 11.9 SEC (9.6-11.6)
[2024-09-01 04:53] LABS: PARTIAL THROMBOPLASTIN TIME 29.6 SEC (26.3-35.5)
--- NOTE | 2024-09-01 05:55 | NUR ---
DALILA Asif unable to bring pt down for CT
--- NOTE | 2024-09-01 09:33 | PN ---
[facility] PROGRESS NOTE Date Patient Seen: Sep 01, 2024 Time of Visit: 09:33 Supervising Physician: Dr. Andrew Petit Primary Care Physician: QUYNH MONAE MD Outpatient Specialists: Dr. Abdullahi, urology (no longer in practice) Inpatient Consults: Dr. Power, urologist PROBLEM LIST: Chronic Bahena catheter complications, POA Bleeding from the urethra, POA, s/p Bahena catheter insertion by home health nurse Hematuria, POA Acute complicated cystitis, POA Anemia CKD stage III BPH with the urinary obstruction Hyperglycemia Hypertension Legally blind History of colon cancer and colon resection INTERVAL HISTORY: Patient evaluated at bedside today, he continues with hematuria although it appears to be improved from yesterday. Patient's hemoglobin is 11 0.8 today and he continues on Levaquin at this time. Patient has pending CT of the abdomen per recommendations from Urology. White count is 4.4 today, creatinine within normal limits. Patient denies any nausea or vomiting or acute pain at this time, pending further updates and recommendations from Urology on this admission. REVIEW OF SYSTEMS: 12 point ROS reviewed with patient. Pertinent positives mentioned above. Otherwise negative. PHYSICAL EXAM: GENERAL: Alert, weak, awake oriented x 3 HEENT: EOMI, Sclera non icteric, moist mucosa. Legally blind NECK: Supple, no JVD, trachea midline LUNGS: Clear breath sounds bilaterally. No wheezes HEART: Regular rate and rhythm. Normal S1 and S2, without murmurs ABD: Abdomen soft, nontender. Bowel sounds present EXT: No clubbing cyanosis or edema NEURO: Alert and oriented X3, follows commands Vital Signs (last 8hr) Date Time Temp Pulse Resp B/P (MAP) Pulse Ox O2 Delivery O2 Flow Rate FiO2 09/01/24 08:00 97.7 51 16 148/57 99 Room Air 21 09/01/24 04:00 98.1 56 16 141/60 95 Room Air 21 LABS: Hematology Labs: Test 08/31/24 05:39 08/30/24 19:53 Range/Units White Blood Count 4.4 L 4.8-10.8 K/uL Red Blood Count 4.07 L 4.50-6.20 MIL/uL Hemoglobin 11.9 L 14.0-18.0 g/dL Hematocrit 35.8 L 42-54 % Mean Corpuscular Volume 88.0 79-99 fL Mean Corpuscular Hemoglobin 29.2 27.0-33.0 pg Mean Corpuscular Hemoglobin Concent 33.2 32.0-36.0 g/dL Red Cell Distribution Width 13.6 11.0-15.5 % Platelet Count 124 L 130-400 K/uL Mean Platelet Volume 10.5 7.5-10.5 fL Nucleated Red Blood Cells 0.0 0.0-0.19 % Immature Granulocyte % (Auto) 0.2 0-1 % Neutrophils (%) (Auto) 67.6 40.0-77.0 % Lymphocytes (%) (Auto) 19.7 L 21.0-51.0 % Monocytes (%) (Auto) 10.9 3.0-13.0 % Eosinophils (%) (Auto) 1.1 0.0-8.0 % Basophils (%) (Auto) 0.5 0.0-5.0 % Neutrophils # (Auto) 3.0 1.8-7.7 K/uL Lymphocytes # (Auto) 0.9 L 1.0-4.8 K/uL Monocytes # (Auto) 0.5 0.1-1.0 K/uL Eosinophils # (Auto) 0.05 0.00-0.70 K/uL Basophils # (Auto) 0.02 0.00-0.20 K/uL Absolute Immature Granulocyte (auto 0.01 0-1 K/uL Chemistry Labs: Test 09/01/24 05:17 08/31/24 05:39 Range/Units Whole Blood Glucose 84 70-110 MG/DL Sodium Level 141 136-145 mmol/L Potassium Level 4.1 3.5-5.1 mmol/L Chloride Level 110 101-111 mmol/L Carbon Dioxide Level 24 21-32 mmol/L Blood Urea Nitrogen 21 H 7-18 mg/dL Creatinine 1.0 0.5-1.3 mg/dL Glomerular Filtration Rate Calc 72 >90 mL/min Random Glucose 81 70-105 mg/dL Total Calcium 8.1 L 8.5-10.1 mg/dL Phosphorus Level 2.7 2.5-4.9 mg/dL Magnesium Level 2.00 1.80-2.40 mg/dL Thyroid Stimulating Hormone (TSH) 2.31 0.36-3.74 uIU/mL Coagulation Labs: Test 6/18/25 04:26 Range/Units Prothrombin Time 11.9 H 9.6-11.6 SEC Prothromb Time International Ratio 1.14 0.85-1.15 Activated Partial Thromboplast Time 29.6 26.3-35.5 SEC DIAGNOSTICS / RADIOLOGY RESULTS: [ ] PLAN Admit to medical floor with fall precautions. Continue Levaquin 500 mg IV daily. Follow urine cultures. Consult urologist in a.m.. Bahena catheter care per nursing. Monitor renal and liver function. Monitor electrolytes and treat accordingly. Start metoprolol succinate, Flomax, Amlodipine per external med rec. Reconcile home medications once available. DVT and GI prophylaxis: Protonix and SCDs. NEURO: Minimize central acting medications as possible. Maintain fall precautions, adequate lighting during the day PULMONARY: Supplemental 02 as needed. Maintain aspiration precautions at all times CARDIOVASCULAR: Follow hemodynamics. Vital signs per facility protocol GI & NUTRITION: Continue with nutritional support. Continue stool softeners and laxatives as needed. KIDNEYS & ELECTROLYTES: Strict monitoring of intake, output and overall fluid balance. Avoid nephrotoxic medications to the extent possible. Medications to be dosed according to renal function. Monitor electrolytes and replace as needed ENDOCRINE: Maintain blood glucose between 100-180 at all times. Hypoglycemia protocol in place INFECTIOUS DISEASE: Trend temperature, WBC and procalcitonin level Follow cultures, deescalate antibiotics as soon as possible. Panculture if new onset fever ONCOLOGY/HEMATOLOGY/COAGULATION: Monitor for s/s of bleeding Monitor hemoglobin, coagulation studies as needed SKIN: Pressure ulcer prevention per facility protocol Specialty mattress ORTHO/REHAB: Continue PT/OT Prophylaxis: Continue GI and DVT prophylaxis Code Status: Full Resuscitation Disposition: TBMIGUELITO TRAVIS Sep 01, 2024 09:33
[2024-09-01] MEDS ORDERED: IOHEXOL-350 75 ML VIAL IV ONE (11:01)
--- NOTE | 2024-09-01 12:07 | HMCIMG ---
CT ABDOMEN/PELVIS W/WO CONTRAS HISTORY: Gross hematuria COMPARISON: 10/09/2022 TECHNIQUE: Multiple sequential axial images of the abdomen and pelvis were obtained from the dome of the diaphragm through symphysis pubis. Patient was given 75 cc of Omnipaque through intravenous route. Oral contrast was not given. FINDINGS: No pleural effusion is seen bilaterally. There is no evidence of parenchymal disease or pulmonary nodule of the visualized lower lungs. Degenerative changes of the thoracolumbar spine are present. The heart is not enlarged. There is 2 cm right renal cyst. Liver measures 17 cm spleen measured 12 cm. Gallbladder is distended. The liver, spleen, adrenal glands and pancreas are unremarkable. There is no evidence of hydronephrosis bilaterally. No evidence of renal stone is seen. Fecal material is seen in the colon. There are normal size retroperitoneal and mesenteric lymph nodes. No ascites is seen. Appendix is not well seen limiting evaluation. Pelvic sidewalls are symmetric bilaterally. Bladder is poorly distended with Bahena catheter. Bladder wall thickening. If there is clinical suspicion for cystitis, urinalysis correlation helpful. IMPRESSION: 1. Fecal material in the colon. Bladder wall thickening. If there is clinical suspicion for cystitis, urinalysis correlation helpful. CT was performed with one or more following dose reduction techniques: automated exposure control, adjustment of the mA and kv according to patient's size, or use of a iterative reconstruction technique.
[2024-09-02] VITALS (8 sets, daily range): BP systolic 124–152; BP diastolic 47–65; PULSE 49–61; RESP 16–22; TEMP 97.6–98.5; O2SAT 98–99
[2024-09-02 05:48] LABS: MEAN CORPUSCULAR HEMOGLOBIN 29.5 pg (27.0-33.0); MEAN CORPUSCULAR HGB CONC 34.4 g/dL (32.0-36.0); MEAN CORPUSCULAR VOLUME 85.8 fL (79-99); RED BLOOD CELL COUNT(AUTO) 3.73 MIL/uL (4.50-6.20); RED CELL DISTRIBUTION WIDTH 13.8 % (11.0-15.5); WHITE BLOOD COUNT (AUTO) 4.7 K/uL (4.8-10.8)
[2024-09-02 06:05] LABS: CREATININE 1.2 mg/dL (0.5-1.3); POTASSIUM 4.1 mmol/L (3.5-5.1)
--- NOTE | 2024-09-02 09:51 | PN ---
[facility] PROGRESS NOTE Date Patient Seen: Sep 02, 2024 Time of Visit: 09:51 Supervising Physician: Dr. Andrew Petit Primary Care Physician: QUYNH MONAE MD Outpatient Specialists: Dr. Abdullahi, urology (no longer in practice) Inpatient Consults: Dr. Power, urologist PROBLEM LIST: Chronic Bahena catheter complications, POA Bleeding from the urethra, POA, s/p Bahena catheter insertion by home health nurse Hematuria, POA Acute complicated cystitis, POA Anemia CKD stage III BPH with the urinary obstruction Hyperglycemia Hypertension Legally blind History of colon cancer and colon resection INTERVAL HISTORY: Patient was seen at bedside today, he is at baseline at this time, he continues on Levaquin daily. Patient's hematuria appears to have cleared at bedside today, pending final consultation with Urology today to plan for any possible interventions. at bedside was updated on the current status of the patient's CT scan would strongly shows bladder wall thickening consistent with cystitis which the patient has been diagnosed with per UA on admission. Patient's white count today is 4.7, his hemoglobin remained stable. We will continue to monitor the patient with possible discharge tomorrow if no indication for intervention as inpatient REVIEW OF SYSTEMS: 12 point ROS reviewed with patient. Pertinent positives mentioned above. Otherwise negative. PHYSICAL EXAM: GENERAL: Alert, weak, awake oriented x 3 HEENT: EOMI, Sclera non icteric, moist mucosa. Legally blind NECK: Supple, no JVD, trachea midline LUNGS: Clear breath sounds bilaterally. No wheezes HEART: Regular rate and rhythm. Normal S1 and S2, without murmurs ABD: Abdomen soft, nontender. Bowel sounds present EXT: No clubbing cyanosis or edema NEURO: Alert and oriented X3, follows commands Vital Signs (last 8hr) Date Time Temp Pulse Resp B/P (MAP) Pulse Ox O2 Delivery O2 Flow Rate FiO2 09/02/24 08:38 97.5 58 16 140/55 99 09/02/24 03:58 98.1 61 17 148/63 99 Room Air LABS: Hematology Labs: Test 09/02/24 05:18 Range/Units White Blood Count 4.7 L 4.8-10.8 K/uL Red Blood Count 3.73 L 4.50-6.20 MIL/uL Hemoglobin 11.0 L 14.0-18.0 g/dL Hematocrit 32.0 L 42-54 % Mean Corpuscular Volume 85.8 79-99 fL Mean Corpuscular Hemoglobin 29.5 27.0-33.0 pg Mean Corpuscular Hemoglobin Concent 34.4 32.0-36.0 g/dL Red Cell Distribution Width 13.8 11.0-15.5 % Platelet Count 116 L 130-400 K/uL Mean Platelet Volume 10.3 7.5-10.5 fL Nucleated Red Blood Cells 0.0 0.0-0.19 % Chemistry Labs: Test 09/02/24 05:22 09/02/24 05:18 Range/Units Whole Blood Glucose 93 70-110 MG/DL Sodium Level 141 136-145 mmol/L Potassium Level 4.1 3.5-5.1 mmol/L Chloride Level 108 101-111 mmol/L Carbon Dioxide Level 27 21-32 mmol/L Blood Urea Nitrogen 25 H 7-18 mg/dL Creatinine 1.2 0.5-1.3 mg/dL Glomerular Filtration Rate Calc 58 >90 mL/min Random Glucose 83 70-105 mg/dL Total Calcium 8.1 L 8.5-10.1 mg/dL Coagulation Labs: Test 09/01/24 04:26 Range/Units Prothrombin Time 11.9 H 9.6-11.6 SEC Prothromb Time International Ratio 1.14 0.85-1.15 Activated Partial Thromboplast Time 29.6 26.3-35.5 SEC DIAGNOSTICS / RADIOLOGY RESULTS: [ ] PLAN Admit to medical floor with fall precautions. Continue Levaquin 500 mg IV daily. Follow urine cultures. Consult urologist in a.m.. Bahena catheter care per nursing. Monitor renal and liver function. Monitor electrolytes and treat accordingly. Start metoprolol succinate, Flomax, Amlodipine per external med rec. Reconcile home medications once available. DVT and GI prophylaxis: Protonix and SCDs. NEURO: Minimize central acting medications as possible. Maintain fall precautions, adequate lighting during the day PULMONARY: Supplemental 02 as needed. Maintain aspiration precautions at all times CARDIOVASCULAR: Follow hemodynamics. Vital signs per facility protocol GI & NUTRITION: Continue with nutritional support. Continue stool softeners and laxatives as needed. KIDNEYS & ELECTROLYTES: Strict monitoring of intake, output and overall fluid balance. Avoid nephrotoxic medications to the extent possible. Medications to be dosed according to renal function. Monitor electrolytes and replace as needed ENDOCRINE: Maintain blood glucose between 100-180 at all times. Hypoglycemia protocol in place INFECTIOUS DISEASE: Trend temperature, WBC and procalcitonin level Follow cultures, deescalate antibiotics as soon as possible. Panculture if new onset fever ONCOLOGY/HEMATOLOGY/COAGULATION: Monitor for s/s of bleeding Monitor hemoglobin, coagulation studies as needed SKIN: Pressure ulcer prevention per facility protocol Specialty mattress ORTHO/REHAB: Continue PT/OT Prophylaxis: Continue GI and DVT prophylaxis Code Status: Full Resuscitation Disposition: TBD MIGUELITO ORR Sep 02, 2024 09:51
[2024-09-02] MEDS: LATANOPROST 2.5 ML DROPS OU SCH (21:00)
[2024-09-02] MEDS: BRIMONIDINE TARTRATE 0.2% 5 ML BOTTLE OD SCH (21:00)
[2024-09-02] MEDS: mirtAZAPine 15 MG TABLET PO SCH (21:01)
--- NOTE | 2024-09-02 22:05 | PN ---
PROGRESS NOTE Date of Service: Sep 02, 2024 Time of Service: 22:00 SUBJECTIVE: Patient continues to do well. The hematuria is resolved. He underwent a CT scan abdomen and pelvis with intravenous contrast yesterday and we reviewed the anatomy today with patient and . The bladder is decompressed so the wall is a little thicker than usual. Prostate is not too prominent but it is noticeable. He has evidence of mild constipation as well with mild rectal distention. We had a long conversation with patient and about the plan moving forward. REVIEW OF SYSTEMS CONSTITUTIONAL: Denies fever, chills, or fatigue. HEAD/FACE: No signs of trauma. EENT: Denies eye pain, blurred vision, double vision, or light sensitivity. RESPIRATORY: Denies shortness of breath, cough, wheezing CARDIOVASCULAR: Denies chest pain, palpitation, syncope GASTROINTESTINAL/ABDOMINAL: Denies abdominal pain, constipation, diarrhea, nausea or vomiting GENITOURINARY: Denies dysuria, endorses hematuria in the Bahena catheter MUSCULOSKELETAL: Denies joint pain, tenderness, or trauma. INTEGUMENTARY: Denies rash or itchiness NEUROLOGICAL/PSYCH: Denies anxiety, depression, heat or cold intolerance. PHYSICAL EXAM EYES: Anicteric. Pupils equal and reactive. HENT: No oral thrush seen, moist Oral mucosa NECK: Supple, no JVD or thyromegaly. LUNGS: Good air entry. No rales, no rhonchi. CARDIOVASCULAR: S1, S2 regular. No murmur heard. ABDOMEN: Soft, non tender, bowel sounds present, no organomegaly CENTRAL NERVOUS SYSTEM: Awake, alert, oriented x 3. No focal deficits. SKIN: No rashes, no swelling. LYMPHATICS: No peripheral lymphadenopathy MUSCULOSKELETAL: No joint swelling, erythema or tenderness. EXTREMITIES: No cyanosis or clubbing BACK: No deformity, no pressure ulcer. GENITOURINARY: Bahena catheter is in place draining clear urine. On exam he is circumcised. His meatus has become patulous from erosion from the Bahena catheter. Vital Signs (last 8hr) Date Time Temp Pulse Resp B/P (MAP) Pulse Ox O2 Delivery O2 Flow Rate FiO2 09/02/24 20:00 97.5 50 17 125/49 98 Room Air 09/02/24 16:20 98.4 49 22 137/53 99 LABS: Laboratory: Test 09/02/24 19:35 09/02/24 05:18 6/18/25 04:26 Range/Units Whole Blood Glucose 92 70-110 MG/DL White Blood Count 4.7 L 4.8-10.8 K/uL Red Blood Count 3.73 L 4.50-6.20 MIL/uL Hemoglobin 11.0 L 14.0-18.0 g/dL Hematocrit 32.0 L 42-54 % Mean Corpuscular Volume 85.8 79-99 fL Mean Corpuscular Hemoglobin 29.5 27.0-33.0 pg Mean Corpuscular Hemoglobin Concent 34.4 32.0-36.0 g/dL Red Cell Distribution Width 13.8 11.0-15.5 % Platelet Count 116 L 130-400 K/uL Mean Platelet Volume 10.3 7.5-10.5 fL Nucleated Red Blood Cells 0.0 0.0-0.19 % Sodium Level 141 136-145 mmol/L Potassium Level 4.1 3.5-5.1 mmol/L Chloride Level 108 101-111 mmol/L Carbon Dioxide Level 27 21-32 mmol/L Blood Urea Nitrogen 25 H 7-18 mg/dL Creatinine 1.2 0.5-1.3 mg/dL Glomerular Filtration Rate Calc 58 >90 mL/min Random Glucose 83 70-105 mg/dL Total Calcium 8.1 L 8.5-10.1 mg/dL Prothrombin Time 11.9 H 9.6-11.6 SEC Prothromb Time International Ratio 1.14 0.85-1.15 Activated Partial Thromboplast Time 29.6 26.3-35.5 SEC DIAGNOSTICS / RADIOLOGY: CT scan abdomen and pelvis with intravenous contrast 09/01/2024. Bladder wall thickening with a noticeable prostate. ASSESSMENT: 88-year-old man with a history of colon cancer status post colonic resection has an indwelling Bahena catheter for the past two years presents to the hospital with traumatic Bahena bleeding following catheter exchange PLAN: 1. We have reviewed the most recent CT scan with patient and . The prostate is noticeable and moderate in size, bladder was a little thick. 2. Patient and expressed to me that he was happy with remaining with the urethral indwelling catheter. We laid out to patient and the advantages a nd disadvantages of a urethral catheter as opposed to a suprapubic catheter. 3. First patient would need cystoscopy with us so we can evaluate the internal anatomy of his prostate and be able to determine if any prostate intervention will be of at a the benefit to the patient. Such a study can be coordinated in an ambulatory setting in our office. 4. Patient is cleared for discharge with the Bahena catheter and to see us in the office for further evaluation. 5 minutes spent at bedside completing this consult, more than half of the time spent in counseling and coordination of care and addressing questions posed by patient but especially patient's , some time was spent discussing with members of his care team, the rest of the time was spent reviewing medical records. VISHAL TRUJILLO MD Sep 02, 2024 22:05
[2024-09-03 05:03] VITALS: BP 151/78; PULSE 69; RESP 19; TEMP 98.8
[2024-09-03 05:38] LABS: HEMATOCRIT 32.4 % (42-54); MEAN CORPUSCULAR HEMOGLOBIN 29.1 pg (27.0-33.0); MEAN CORPUSCULAR VOLUME 85.7 fL (79-99); RED BLOOD CELL COUNT(AUTO) 3.78 MIL/uL (4.50-6.20); RED CELL DISTRIBUTION WIDTH 13.7 % (11.0-15.5); WHITE BLOOD COUNT (AUTO) 4.3 K/uL (4.8-10.8)
[2024-09-03 05:49] LABS: CREATININE 1.2 mg/dL (0.5-1.3); POTASSIUM 3.8 mmol/L (3.5-5.1)
--- NOTE | 2024-09-03 07:03 | NUR ---
PATIENT UPDATE DR. TRUJILLO CAME TO SEE THE PT FOR CONSULT AT 2144 LAST NIGHT. PT SEEN AND EXAMINED, ADDRESSED THE PT'S 'S CONCERNS. DISCUSSED PLAN OF CARE. PLAN IS FOR PT TO FOLLOW UP WITH DR. TRUJILLO OUTPATIENT TO SCHEDULE FOR A CYSTOSCOPY. POSSIBLE DISCHARGE TO HOME TODAY.
[2024-09-03 08:05] VITALS: BP 154/57; PULSE 53; RESP 16; TEMP 97.5
[2024-09-03 08:20] VITALS: O2SAT 98
[2024-09-03] MEDS ORDERED: metOPROLol sucCINATE 50 MG TAB.SR.24H PO SCH (09:00)
[2024-09-03] MEDS ORDERED: tamSULOsin HCL 0.4 MG CAP.ER.24H PO SCH (09:00)
--- NOTE | 2024-09-03 12:03 | PN ---
[facility] PROGRESS NOTE Date Patient Seen: Sep 03, 2024 Time of Visit: 12:03 Supervising Physician: [ ] Supervising Physician: Dr. Andrew Petit Primary Care Physician: QUYNH MONAE MD Outpatient Specialists: Dr. Abdullahi, urology (no longer in practice) Inpatient Consults: Dr. Power, urologist PROBLEM LIST: Chronic Bahena catheter complications, POA Bleeding from the urethra, POA, s/p Bahena catheter insertion by home health nurse Hematuria, POA Acute complicated cystitis, POA Anemia CKD stage III BPH with the urinary obstruction Hyperglycemia Hypertension Legally blind History of colon cancer and colon resection INTERVAL HISTORY: Patient was seen at bedside today, he is at baseline at this time, he continues on Levaquin daily. Patient's hematuria appears to have cleared at bedside today, pending final consultation with Urology today to plan for any possible interventions. at bedside was updated on the current status of the patient's CT scan would strongly shows bladder wall thickening consistent with cystitis which the patient has been diagnosed with per UA on admission. Patient's white count today is 4.7, his hemoglobin remained stable. We will continue to monitor the patient with possible discharge tomorrow if no indication for intervention as inpatient REVIEW OF SYSTEMS: 12 point ROS reviewed with patient. Pertinent positives mentioned above. Otherwise negative. PHYSICAL EXAM: GENERAL: Alert, weak, awake oriented x 3 HEENT: EOMI, Sclera non icteric, moist mucosa. Legally blind NECK: Supple, no JVD, trachea midline LUNGS: Clear breath sounds bilaterally. No wheezes HEART: Regular rate and rhythm. Normal S1 and S2, without murmurs ABD: Abdomen soft, nontender. Bowel sounds present EXT: No clubbing cyanosis or edema NEURO: Alert and oriented X3, follows commands Vital Signs (last 8hr) Date Time Temp Pulse Resp B/P (MAP) Pulse Ox O2 Delivery O2 Flow Rate FiO2 09/03/24 08:05 97.5 53 16 154/57 98 09/03/24 05:03 98.8 69 19 151/78 95 Room Air LABS: Hematology Labs: Test 09/03/24 05:16 Range/Units White Blood Count 4.3 L 4.8-10.8 K/uL Red Blood Count 3.78 L 4.50-6.20 MIL/uL Hemoglobin 11.0 L 14.0-18.0 g/dL Hematocrit 32.4 L 42-54 % Mean Corpuscular Volume 85.7 79-99 fL Mean Corpuscular Hemoglobin 29.1 27.0-33.0 pg Mean Corpuscular Hemoglobin Concent 34.0 32.0-36.0 g/dL Red Cell Distribution Width 13.7 11.0-15.5 % Platelet Count 111 L 130-400 K/uL Mean Platelet Volume 10.6 H 7.5-10.5 fL Nucleated Red Blood Cells 0.0 0.0-0.19 % Chemistry Labs: Test 09/03/24 11:21 09/03/24 05:16 Range/Units Whole Blood Glucose 93 70-110 MG/DL Sodium Level 142 136-145 mmol/L Potassium Level 3.8 3.5-5.1 mmol/L Chloride Level 109 101-111 mmol/L Carbon Dioxide Level 27 21-32 mmol/L Blood Urea Nitrogen 23 H 7-18 mg/dL Creatinine 1.2 0.5-1.3 mg/dL Glomerular Filtration Rate Calc 58 >90 mL/min Random Glucose 83 70-105 mg/dL Total Calcium 8.1 L 8.5-10.1 mg/dL DIAGNOSTICS / RADIOLOGY RESULTS: [ ] PLAN Admit to medical floor with fall precautions. Continue Levaquin 500 mg IV daily. Follow urine cultures. Consult urologist in a.m.. Bahena catheter care per nursing. Monitor renal and liver function. Monitor electrolytes and treat accordingly. Start metoprolol succinate, Flomax, Amlodipine per external med rec. Reconcile home medications once available. DVT and GI prophylaxis: Protonix and SCDs. NEURO: Minimize central acting medications as possible. Maintain fall precautions, adequate lighting during the day PULMONARY: Supplemental 02 as needed. Maintain aspiration precautions at all times CARDIOVASCULAR: Follow hemodynamics. Vital signs per facility protocol GI & NUTRITION: Continue with nutritional support. Continue stool softeners and laxatives as needed. KIDNEYS & ELECTROLYTES: Strict monitoring of intake, output and overall fluid balance. Avoid nephrotoxic medications to the extent possible. Medications to be dosed according to renal function. Monitor electrolytes and replace as needed ENDOCRINE: Maintain blood glucose between 100-180 at all times. Hypoglycemia protocol in place INFECTIOUS DISEASE: Trend temperature, WBC and procalcitonin level Follow cultures, deescalate antibiotics as soon as possible. Panculture if new onset fever ONCOLOGY/HEMATOLOGY/COAGULATION: Monitor for s/s of bleeding Monitor hemoglobin, coagulation studies as needed SKIN: Pressure ulcer prevention per facility protocol Specialty mattress ORTHO/REHAB: Continue PT/OT Prophylaxis: Continue GI and DVT prophylaxis Code Status: Full Resuscitation Disposition: TBD MIGUELITO ORR Sep 03, 2024 12:03
[2024-09-03] MEDS ORDERED: LEVO750T90 PO (12:05)
--- NOTE | 2024-09-03 12:08 | DS ---
[facility] DISCHARGE SUMMARY Date Patient Seen: Sep 03, 2024 Time of Visit: 12:07 Supervising Physician: Dr. Andrew Petit Primary Care Physician: QUYNH MONAE MD Outpatient Specialists: Dr. Abdullahi, urology (no longer in practice) Inpatient Consults: Dr. Power, urologist HOSPITAL COURSE: HPI (per admitting provider) Mr. Nash is a 88-year-old male with a history of HTN, BPH, seasonal allergies, legally blind, colon cancer, colon resection who [place] [facility] [place] evaluation of no urine output except for blood-tinged urine onset this morning after the Bahena catheter was changed. at bedside stated that he has a chronic Bahena catheter for two years and it has been changed monthly by home health nurse. She stated that the Bahena catheter was draining in the morning perfectly then the home health nurse changed it and there was no urine output except for blood. She stated that the home health nurse got anxious and said to her to go to the emergency room for further evaluation and treatment. ED provider reports patient has had acute traumatic insertion of the Bahena most likely inflated in the urethra and ED providers concerned that on 08/11 the hemoglobin was 13.6 and today it is 12. The catheter was inserted by ED and drain large amount of urine with small to moderate amount blood. ED provider request patient be admitted with the diagnosis of bleeding from the ureter, complicated Bahena catheter, anemia, hyperglycemia, stage III CKD, hypocalcemia, BPH with urinary obstruction. I assessed the patient at bedside in ED 11. was at bedside. The patient appeared comfortable. Breathing was even, unlabored, in no distress. I informed the patient and at bedside of labs, diagnostics, and plan of care. They verbalized understanding and are in agreement with the plan. Plan and as sessment are listed below. The patient was treated for the following problems: Patient was admitted for traumatic hematuria following chronic Bahena insertion by home health nurse. Patient's hematuria at the time of discharge has resolved, he was seen by Urology on this visit with plans for outpatient cystoscopy and further intervention for possible suprapubic catheter. Patient is being discharged with levofloxacin for seven days to complete antibiotic treatment. Advised to follow up with PCP for referral to Urology. ACTIVE PROBLEM LIST FOR THE HOSPITALIZATION: Chronic Bahena catheter complications, POA Bleeding from the urethra, POA, s/p Bahena catheter insertion by home health nurse Hematuria, POA Acute complicated cystitis, POA CHRONIC PROBLEMS: continue previous management per PCP unless otherwise ind icated Anemia CKD stage III BPH with the urinary obstruction Hyperglycemia Hypertension Legally blind History of colon cancer and colon resection [employer] FINDINGS/RECOMMENDATIONS: [ ] PROCEDURES: as mentioned above DISCHARGE MEDICATIONS: Pt hemodynamically stable and afebrile at time of discharge. PCP notified of patients admission, hospital course and discharge. PHYSICAL EXAM: GENERAL: Alert, weak, awake oriented x 3 HEENT: EOMI, Sclera non icteric, moist mucosa. Legally blind NECK: Supple, no JVD, trachea midline LUNGS: Clear breath sounds bilaterally. No wheezes HEART: Regular rate and rhythm. Normal S1 and S2, without murmurs ABD: Abdomen soft, nontender. Bowel sounds present EXT: No clubbing cyanosis or edema NEURO: Alert and oriented X3, follows commands FOLLOW-UP: Follow-up with PCP in 2-3 days RECOMMENDATIONS: Complete levofloxacin antibiotic treatment Follow up with Urology for outpatient cystoscopy This case was seen and discussed with my supervising physician. More than 30 minutes spent on discharge process, including evaluation of the patient, dis cussion with nursing staff, medication reconciliation and follow-up appointments MIGUELITO ORR Sep 03, 2024 12:08
[2024-09-03 12:17] VITALS: BP 155/54; PULSE 57; RESP 22; TEMP 97.9
--- NOTE | 2024-09-06 14:32 | NUR ---
Transitional Phone Call Spoke with Neli Nash, Spouse [phone], [place] [employer] patient "is doing fine. He's doing okay." has new prescription and is continuing to take home medications as instructed; no questions or concerns with medication. [facility] has scheduled the follow up appointment with PCP - Dr. Goyo Gonzalez on 09/08/2024; "unfortunately," urology - Dr. Pedro is out of network and will need to get a referral from the PCP - Dr. Goyo Gonzalez for the urology follow up appointment. No questions or concerns at this time, provided contact number for additional assistance.
== END 2024-09-03 16:48 | disposition home or self-care (01) | DRG 699 ==
LOC: EDH 17:59 → OBSVTOIN 18:00 → EDHIP 18:00 → 3AH 08-31 20:51
PROVIDERS: ADMIT Internal Medicine Critical Care Medicine; ATTEND Internal Medicine Critical Care Medicine
DX: T83.83XA Hemorrhage due to genitourinary prosthetic devices, implants and grafts, initial encounter (principal); N30.01 Acute cystitis with hematuria; N36.8 Other specified disorders of urethra; D64.9 Anemia, unspecified; E83.51 Hypocalcemia; H54.8 Legal blindness, as defined in USA; I12.9 Hypertensive chronic kidney disease with stage 1 through stage 4 chronic kidney disease, or unspecified chronic kidney disease; N18.30 Chronic kidney disease, stage 3 unspecified; N40.1 Benign prostatic hyperplasia with lower urinary tract symptoms; K59.00 Constipation, unspecified; Y82.8 Other medical devices associated with adverse incidents; Y84.6 Urinary catheterization as the cause of abnormal reaction of the patient, or of later complication, without mention of misadventure at the time of the procedure; Z85.038 Personal history of other malignant neoplasm of large intestine; Z88.0 Allergy status to penicillin; Y92.89 Other specified places as the place of occurrence of the external cause
CPT/HCPCS: 36415; 74178; 80048; 81001; 82948; 83735; 84100; 84443; 85025; 85027; 85610; 85730; 87086; 99285; G0378; J1956; J7030; Q9967